=== PATIENT | female | born 1955 | race Caucasian/White ===

== ENCOUNTER 2017-06-29 06:58 | Inpatient (IN) | payer OTHER, SELFPAY ==
--- NOTE | 2017-06-29 | CYSPIN_PTH ---
PATIENT: PRIYA LORENZO LOC: MS2 U#:[id number] AGE/SX: 61/F ROOM: [facility] [place] RE06/29/[address]: Dr. Sharla Ansari MD : [id number] BED: 1 DIS: 07/05/2017 SPEC #: [id number] RECD: 06/30/17 11:55 STATUS: VINCENT HALI #: [id number] BHUMIKA: 06/29/17 00:[address]: Caden Keith DEPT: CYTOLOGY RECD BY: Scott Santiago ENTERED: 06/30/17 11:56 SP TYPE: CYSPIN FL OTHR DR: Dr. Ronen Ferraro MD Tissues: Cerebrospinal Fluid Procedures: Pap Stain (control) Special Stain Group II Cytospin Fluid HEADER OPERATION: Fluoroscopic-guided lumbar puncture PRE-OP DIAGNOSIS: Headaches and neck stiffness TISSUE SUBMITTED: Cerebrospinal fluid for cytology DIAGNOSIS CYTOLOGY Cerebrospinal fluid for cytology (cytospin): Acellular specimen. SJ:lucio 07/01/17 CYTOLOGY STUDY Slides are reviewed. CYTOLOGY GROSS Received is 1 ml of clear fluid labeled with the patient's name and and designated per the requisition as CSF. Submitted for cytology preparation. / 06/30/17 TC:4 CPT: 85093
[2017-06-29 07:00] VITALS: BP 136/90; PULSE 79; RESP 16; TEMP 36.2; O2SAT 95; BMI 35.2
--- NOTE | 2017-06-29 07:35 | CT_ITS ---
STUDY: CTA NECK WITH CONTRAST REASON FOR EXAM: Female, 61 years old. Headaches. Dizziness. RADIATION DOSAGE (If Supplied By Facility): CTDIvol = ( 16.70 ) mGy, DLP = ( 530.66 ) mGycm TECHNIQUE: CT angiography with multi-detector data acquisition was performed from the aortic arch to the skull base following intravenous administration of 100 ml of Isovue 370 contrast. MIP images were reconstructed from the axial data set. Post-processing of the angiographic images was performed, with multiplanar reformation and 3D reconstruction. Individualized dose optimization techniques were used for this CT. COMPARISON: None. FINDINGS: AORTIC ARCH: There is atherosclerotic calcific plaque formation of the aortic arch and great vessels arising from the aortic arch, without a hemodynamically significant stenosis. There is a normal origin of the brachiocephalic, left common carotid, and left subclavian arteries. RIGHT CAROTID ARTERIES: Normal right common carotid artery (CCA). Normal right common carotid bulb. There is mild atherosclerotic plaque formation of the origin of the right internal carotid artery with less than 50% cross sectional diameter stenosis. Normal visualized cervical portion of the right internal carotid artery. Normal origin of the right external carotid artery (ECA). LEFT CAROTID ARTERIES: Normal left common carotid artery (CCA). Normal left common carotid bulb. Normal origin of the left internal carotid (ICA) artery without a hemodynamically significant stenosis. Normal visualized cervical portion of the left internal carotid artery. Normal origin of the left external carotid artery (ECA). VERTEBRAL ARTERIES: There is enhancement within the bilateral vertebral arteries with a small left vertebral artery, and a dominant right vertebral artery. CT/CTA Neck W/WO Contrast IMPRESSION: Mild plaque formation at the origin of the right internal carotid artery. Electronically Signed: Jose Gatica MD at 9:46 EDT Tel [phone], Service support ,
--- NOTE | 2017-06-29 07:35 | CT_ITS ---
STUDY: CTA OF THE BRAIN REASON FOR EXAM: Female, 61 years old. Headaches. Dizziness. RADIATION DOSAGE (If Supplied By Facility): CTDIvol = ( 44.99 ) mGy, DLP = ( 734.24 ) mGycm TECHNIQUE: CT angiography was performed with a multi-detector CT scanner. Data acquisition was obtained from the skull base through the vertex following intravenous administration of 100 ml of Isovue-370. MIP images were reconstructed from the axial data set. Post-processing of the angiographic images was performed, with multiplanar reformation and 3D reconstruction. Individualized dose optimization techniques were used for this CT. COMPARISON: None. FINDINGS: Normal bilateral petrous carotid arteries. There is calcified plaque formation of the right cavernous carotid artery, without a cross-sectional luminal stenosis. There is calcified plaque formation of the left cavernous carotid artery, without a cross-sectional luminal stenosis. Normal right A1 segments of the anterior cerebral artery. Normal left A1 segments of the anterior cerebral artery. Normal intact anterior communicating artery (ACOM). Normal bilateral A2 segments of the anterior cerebral arteries. Normal right M1 and M2 segments of the middle cerebral arteries, with a normal M1 bifurcation. Normal left M1 and M2 segments of the middle cerebral arteries, with a normal M1 bifurcation. Normal right posterior communicating artery (PCOM). There is a persistent origin of the left posterior cerebral artery with absence of the posterior communicating artery (PCOM). Normal bilateral vertebral arteries. Normal basilar artery with a normal basilar bifurcation. The visualized bilateral superior cerebellar (SCA) arteries are normal. Normal bilateral P1, P2 and visualized P3 segments of the posterior cerebral arteries. There is no demonstrated aneurysm of the [place] of [place]. Atherosclerotic calcification of the cavernous portions of the internal carotid arteries. Punctate calcifications in the bilateral basal ganglia. CT/CTA Head W/WO Contrast IMPRESSION: Normal [place] of [place] without a demonstrated aneurysm or hemodynamically significant stenosis. Electronically Signed: Jose Gatica MD at 9:52 EDT Tel [phone], Service support ,
--- NOTE | 2017-06-29 07:40 | ED.DCSUM_ITS ---
- ER Visit Summary Date of Service: 06/29/17 Chief Complaint: Headache History of Present Illness: The patient is a 61 F presenting with headache. Patient states this started on Tuesday. Headache was gradual in onset. On Tuesday she went to [facility]. She was told that she had a sinus infection and was put on prednisone and Ceftin. She states she has not improved. She complains of diffuse headache. Denies nausea or vomiting. She complains of sore throat. No fever or chills. She complains of tightness in neck. Denies other complaints. Physical Examination: Vitals are stable. Patient is afebrile. Alert no acute distress. HEENT exam is unremarkable. Neck is supple. Bilateral paraspinal cervical muscle tenderness Lungs are clear and equal bilaterally. Heart is regular rate and rhythm. Abdomen is soft nontender nondistended. Extremities are unremarkable. Skin is warm and dry. No focal neurologic deficit. Remainder of exam is unremarkable. Emergency Department Course and Treatment: Patient given IV fluids, Compazine, Benadryl with improvement. CBC is shows wbc 11.4. Chemistry shows potassium 3.3, BUN 23. Coags are normal. CTA head and neck show mild plaque right internal carotid. Patient was consented for lumbar puncture. Attempts at LP were unsuccessful secondary to body habitus. LP will be performed under fluoro and show normal glucose, elevated protein, remainder pending. She was given Toradol for continued headache. Discussed with the hospitalist for admission. Disposition: Admission Impression: Headache, viral meningitis This note was generated with Lulu dictation software. It may contain incorrect words, spelling, and punctuation that were not noted in review of the chart prior to signing ED Disposition - Plan for ED Patient: Disposition: Acute Care Hospital [facility] Chief Complaint: Headache
[2017-06-29] MEDS: DiphenhydrAMINE 50 MG/ML Syringe 25 MG IV (07:41)
[2017-06-29] MEDS: proCHLORPERazine 10 MG/2 ML Vial IV (07:41)
[2017-06-29] MEDS: 0.9% Normal Saline 1,000 ML 1000 ML IV (07:41)
[2017-06-29 08:22] LABS: Absolute Lymphocyte Count 1.35 X10^3/ul (0.83-4.51); Absolute Neutrophil Count 9.1 X10^3/uL (2.0-7.7); Basophil# 0.02 X10^3/uL; Basophil% 0.2 % (0-1); Eosinophil# 0.07 X10^3/uL; Eosinophils% 0.6 % (0-5); Hematocrit 43.8 % (37-47); Hemoglobin 14.8 g/dl (12.0-15.0); Lymphocyte # 1.35 X10^3/ul (4.0); Lymphocyte % 11.8 % (19-41); Mean Corp Hgb Conc 33.8 g/gl (32-36); Mean Corpuscular Hgb 32.1 pg (27.0-32.0); Mean Platelet Vol. 9.8 fl (6.2-12.0); Monocyte# 0.86 X10^3/uL; Monocyte% 7.5 % (0-10); Neutrophil # 9.08 X10^3/uL (2.7-7.7); Neutrophil % 79.5 % (47-70); Platelet Count 203 K/mm3 (150-450); RBC Distribution Width CV 14.8 % (11.6-14.6); RBC Distribution Width SD 49.8 fl (35.1-43.9); Red Blood Count 4.61 M/mm3 (4.2-5.4); White Blood Count 11.4 K/mm3 (4.4-11.0)
[2017-06-29 08:23] LABS: POSITIVE COUNT NO; POSITIVE DIFFERENTIAL NO; POSITIVE MORPHOLOGY NO
[2017-06-29 08:30] LABS: Anion Gap 8 (5-15); BUN 23 mg/dL (7-18); BUN/Creat Ratio 26.9 RATIO (10-20); Calcium,Total 8.7 mg/dL (8.5-10.1); Chloride 106 mmol/L (98-107); Creatinine, Serum 0.86 mg/dL (0.55-1.02); EST Glomerular Filtration Rate 72 mL/min (>60); Est Glom Filt Rate - Afr Amer 87 mL/min (>60); Estimated Creatinine Clearance 49.97 ml/min; Glucose 101 mg/dL (74-106); Potassium 3.3 mmol/L (3.5-5.1); Sodium Level 140 mmol/L (136-145)
[2017-06-29 10:59] VITALS: BP 137/76; PULSE 92; RESP 14; O2SAT 95
[2017-06-29 11:08] LABS: Partial Thromboplast Time 24.3 Seconds (24.1-36.2)
[2017-06-29 12:00] VITALS: RESP 16
[2017-06-29] MEDS: Ketorolac 30 MG/ML Syringe IV (13:55)
[2017-06-29 14:00] VITALS: BP 130/79; PULSE 83; RESP 16; O2SAT 99
--- NOTE | 2017-06-29 14:35 | RAD_ITS ---
PROCEDURE: Fluoroscopic guided Lumbar Puncture. DATE: June 29, 2017. CLINICAL INDICATION: Headaches and neck stiffness and possible meningitis. PHYSICIAN: Jose Gatica M.D. MEDICATIONS: 1% lidocaine administered subcutaneously for local anesthesia. ACCESS SITE: Lower posterior back. NEEDLE: 22-gauge spinal needle. SPECIMEN: Approximately 12 mL clear]CSF fluid. FLUOROSCOPY TIME (if supplied): (0:43) minutes/seconds COMPLICATIONS: None immediate. The risks, benefits, and alternatives to the procedure were explained to the patient. The specific risks of bleeding, infection, and neurovascular injury were detailed and accepted. Witnessed informed consent was obtained. The patient was placed on the fluoroscopic table in the prone position. The level for needle entry was determined and marked. The overlying skin was cleaned and prepped in the usual sterile fashion. 2% lidocaine was administered subcutaneously for local anesthesia. Under fluoroscopic guidance a 22-gauge spinal needle was advanced. The thecal sac was entered at the L3- L4 vertebral level. The inner stylet was removed. There was spontaneous flow of clear CSF fluid. The patient was placed in a reversed Trendelenburg position. Approximately 12 mL of cerebrospinal fluid was collected using gravity. The specimen was collected and submitted to the laboratory for further evaluation. The needle was withdrawn,. Hemostasis was achieved and a sterile dressing placed. The patient tolerated the procedure well without any immediate complications. The patient was placed supine with head elevated and returned to the floor in stable condition. RAD/Fluoro Guided Lumbar Puncture IMPRESSION: Successful fluoroscopic-guided lumbar puncture. Electronically Signed: Jose Gatica MD at 15:21 EDT Tel [phone], Service support ,
[2017-06-29 15:10] LABS: Cytology, Body Fluid / CSF SEE PATHOLOGY REPORT
[2017-06-29 15:22] LABS: Glucose Spinal Fluid 71 mg/dL (40-75)
[2017-06-29 15:46] VITALS: BP 140/73; PULSE 82; RESP 16; O2SAT 95
[2017-06-29 15:56] LABS: Body Fluid Mononuclear WBC # 0.001 10^3/uL; Total Cell Count CSF 0.001 10^3/uL (0.000-0.000); White Count, CSF 0.001 10^3/uL (0.000-0.000)
[2017-06-29 16:05] LABS: Appearance CSF (character) CLEAR (Clear); Auto B Fluid Analyzer BKGD Ct COUNTS W/IN LIMITS (W/IN LIMITS); CSF Color COLORLESS (Colorless); Tested Tube # 3
[2017-06-29 16:06] LABS: RBC Count, Spinal Fluid 0 /mm-3 (None seen)
[2017-06-29 16:07] LABS: Body Fluid QC Type(s) BF4Q
--- NOTE | 2017-06-29 16:46 | PCM.HP.STD ---
Problem List (1) Viral encephalitis Status: Acute (2) HTN (hypertension) Status: Chronic History of Present Illness Date of Admission: 06/29/17 Chief Complaint: Headache, neck pain and fever The patient is a 61 year old F who is in her normal state of health up until about a week ago. One week ago patient started developing is diffuse headache as well as stiff neck and has intermittently had low-grade fevers up to 100.7 Fahrenheit. Patient which is not getting better and presented to the emergency room. Patient tried to get a lumbar puncture at bedside but were unsuccessful and the patient underwent to fluoroscopy and underwent a lumbar puncture. Results of the lumbar puncture showed white blood cells and protein count of 54. Glucose of 71. Patient is still having symptoms and discomfort in so patient is being admitted for treatment of viral encephalitis and pain control. Patient states that prior to this she denied any recent illness but did come back from [place] but did not do any hiking and did not contract any illnesses while she was there. [] Past Medical History Past Medical History (Chronic Problems): Chronic Problems HTN (hypertension) (Chronic) Allergies amoxicillin [From Augmentin] Allergy (Verified 06/29/17 06:59) Upset Stomach clavulanic acid [From Augmentin] Allergy (Verified 06/29/17 06:59) Upset Stomach Home Medications: Ambulatory Orders Medication Instructions Recorded Allopurinol [Allopurinol] 1 tab PO PRN PRN 06/29/17 Aspirin 81 mg PO DAILY 06/29/17 Metoprolol(XL)Succ [Toprol Xl 1 tab PO DAILY 06/29/17 (Beta Nola)] Triamterene 37.5MG/Hctz 25MG 1 tab PO DAILY 06/29/17 [Dyazide (G)] Surgical History: total knee arthroplasty Psychiatric History: No pertinent psych hx Lives: Spouse/ Significant Other Smoking Status: Never smoker Tobacco Use: Non-smoker Alcohol: Rare Drugs: None - *Family History Maternal History Items: - - No neurologic disorders Review of Systems Constitutional: Denies: Chills, Fever, Weight Change Eyes: Reports: - - Dry eyes. Denies: Blurred vision, Double vision HEENT: Denies: Head Aches, Sinus Congestion, Sinus Drainage Cardiovascular: Denies: Chest Pain, Palpitations Respiratory: Reports: Shortness of breath at rest. Denies: Cough Gastrointestinal: Denies: Abdominal Pain, Constipation, Diarrhea, Nausea Genitourinary: Denies: Dysuria Musculoskeletal: Reports: Neck Pain. Denies: Joint Pain, Joint Tenderness Skin: Denies: Rash, Wounds Neurological: Denies: Numbness, Tingling, Focal weakness Psychiatric: Denies: Anxiety, Depression, Homicidal Ideations, Suicidal Ideations Hematologic/ Lymphatic: Denies: Easy Bruising, Easy Bleeding, Hx of blood clot VTE Information - Inpt Only VTE Present on Admission: No VTE Pharm Prophylaxis ordered?: Yes Patient Problems: Active and Suspected Problems Viral encephalitis (Acute) - Physical Exam General: Alert, Cooperative, No apparent distress, Well developed, Well nourished HEENT: Atraumatic, PERRLA, EOMI, Normocephalic Oral: Moist Mucosa, No Gingival or Mucosal Lesions/ Ulcerations Neck: No Nodes, Thyroid Normal Size and Texture Lungs: Clear to auscultation, Normal air movement, No rhonchi, No wheeze Cardiovascular: Regular rate, Regular Rhythm, Normal S1, Normal S2, No murmurs Abdomen: Bowel Sounds Present, Soft, Non Tender, Non-Distended, No Hepato-splenomegaly Extremities: No edema, No Calf Tenderness Skin: No rashes Musculoskeletal: No Tenderness to Palpation of Joints or Extremities, No Muscle Wasting Neurological: Neuro grossly intact, Motor Exam 5/5 strength throughout, - - Negative Kernig and Brudzinski sign Psych/Mental Status: Normal Affect, Appropriate Vital Signs Temp Pulse Resp BP Pulse Ox 36.2 C L 82 16 140/73 H 95 06/29/17 07:00 06/29/17 15:46 06/29/17 15:46 06/29/17 15:46 06/29/17 15:46 Oxygen Delivery Method Room Air Weight: 81.647 kg Body Mass Index (BMI) 35.2 Microbiology Past 72 Hours 06/29/17 14:41 Gram Stain - Preliminary Csf, Spinal Fluid 06/29/17 14:41 Streptococcus pneumoniae Antigen (M - Final Csf, Spinal Fluid Laboratory Tests Past 24 Hrs 06/29/17 06/29/17 06/29/17 07:20 07:20 07:20 WBC 11.4 H RBC 4.61 Hgb 14.8 Hct 43.8 MCV 95.0 MCH 32.1 H MCHC 33.8 RDW 14.8 H RDW Differential 49.8 H Plt Count 203 MPV 9.8 Immature Gran % (Auto) 0.400 Neut % (Auto) 79.5 H Lymph % (Auto) 11.8 L Mcduffie % (Auto) 7.5 Eos % (Auto) 0.6 Baso % (Auto) 0.2 Absolute Neuts (auto) 9.1 H Absolute Lymphs (auto) 1.35 Total Counted Not Reportable PT 13.0 INR 1.0 APTT 24.3 Sodium 140 Potassium 3.3 L Chloride 106 Carbon Dioxide 26.0 Anion Gap 8 BUN 23 H Creatinine 0.86 Estim Creat Clear Calc 49.97 Est GFR (MDRD) Af Amer 87 Est GFR (MDRD) Non-Af 72 BUN/Creatinine Ratio 26.9 H Glucose 101 Calcium 8.7 Fld Polynuclear WBCs # Fld Polynuclear WBCs % Fluid Mononuclear WBCs Fld Mononuclear WBCs % CSF Appearance CSF Color CSF WBC CSF RBC CSF Cell Count Tube # CSF Total Cell Counted CSF Comment CSF Glucose CSF Total Protein Miscellaneous Cytology 06/29/17 06/29/17 06/29/17 14:41 14:41 14:41 WBC RBC Hgb Hct MCV MCH MCHC RDW RDW Differential Plt Count MPV Immature Gran % (Auto) Neut % (Auto) Lymph % (Auto) [place]duff[place] % (Auto) Eos % (Auto) Baso % (Auto) Absolute Neuts (auto) Absolute Lymphs (auto) Total Counted PT INR APTT Sodium Potassium Chloride Carbon Dioxide Anion Gap BUN Creatinine Estim Creat Clear Calc Est GFR (MDRD) Af Amer Est GFR (MDRD) Non-Af BUN/Creatinine Ratio Glucose Calcium Fld Polynuclear WBCs # 0.000 Fld Polynuclear WBCs % 0.0 Fluid Mononuclear WBCs 0.001 Fld Mononuclear WBCs % 100.0 CSF Appearance CLEAR CSF Color COLORLESS CSF WBC 0.001 H CSF RBC 0 CSF Cell Count Tube # 3 CSF Total Cell Counted 0.001 H CSF Comment May follow CSF Glucose 71 CSF Total Protein 54.0 H Miscellaneous Cytology 06/29/17 14:41 WBC RBC Hgb Hct MCV MCH MCHC RDW RDW Differential Plt Count MPV Immature Gran % (Auto) Neut % (Auto) Lymph % (Auto) [place]ff[place] % (Auto) Eos % (Auto) Baso % (Auto) Absolute Neuts (auto) Absolute Lymphs (auto) Total Counted PT INR APTT Sodium Potassium Chloride Carbon Dioxide Anion Gap BUN Creatinine Estim Creat Clear Calc Est GFR (MDRD) Af Amer Est GFR (MDRD) Non-Af BUN/Creatinine Ratio Glucose Calcium Fld Polynuclear WBCs # Fld Polynuclear WBCs % Fluid Mononuclear WBCs Fld Mononuclear WBCs % CSF Appearance CSF Color CSF WBC CSF RBC CSF Cell Count Tube # CSF Total Cell Counted CSF Comment CSF Glucose CSF Total Protein Miscellaneous Cytology Pending Clinical Impression(s) from Imaging Studies Head CTA 06/29/17 07:35 IMPRESSION: Normal [place] without a demonstrated aneurysm or hemodynamically significant stenosis. Electronically Signed: Jose Gatica MD at 9:52 EDT Tel [phone], Service support , Neck CTA 06/29/17 07:35 IMPRESSION: Mild plaque formation at the origin of the right internal carotid artery. Electronically Signed: Jose Gatica MD at 9:46 EDT Tel [phone], Service support , Lumbar Puncture Fluoroscopy 06/29/17 14:35 IMPRESSION: Successful fluoroscopic-guided lumbar puncture. Electronically Signed: Jose Gatica MD at 15:21 EDT Tel [phone], Service support , Assessment/Plan Active and Suspected Problems Viral encephalitis (Acute) 1. Viral encephalitis Patient will be started empirically on acyclovir at 10 mg/kg Studies for enterovirus, HSV and VZV are pending. Patient thus far tolerated the spinal tap well. We will follow the patient in regards to any kind of post spinal headaches. 2. Headache Likely secondary to above. Patient to take ibuprofen and Tylenol 3. Hypertension: Stable continue with her home meds 4. DVT prophylaxis with low molecular weight heparin. Code Visit Inpatient E&M: 29393 Init Hosp L3
--- NOTE | 2017-06-29 16:49 | NURSING ---
Kevin VIRAL ENCEPHALITIS [facility]
--- NOTE | 2017-06-29 16:53 | HP.PCM_ITS ---
Problem List (1) Viral encephalitis Status: Acute (2) HTN (hypertension) Status: Chronic History of Present Illness Date of Admission: 06/29/17 Chief Complaint: Headache, neck pain and fever The patient is a 61 year old F who is in her normal state of health up until about a week ago. One week ago patient started developing is diffuse headache as well as stiff neck and has intermittently had low-grade fevers up to 100.7 Fahrenheit. Patient which is not getting better and presented to the emergency room. Patient tried to get a lumbar puncture at bedside but were unsuccessful and the patient underwent to fluoroscopy and underwent a lumbar puncture. Results of the lumbar puncture showed white blood cells and protein count of 54. Glucose of 71. Patient is still having symptoms and discomfort in so patient is being admitted for treatment of viral encephalitis and pain control. Patient states that prior to this she denied any recent illness but did come back from [place] but did not do any hiking and did not contract any illnesses while she was there. [] Past Medical History Past Medical History (Chronic Problems): Chronic Problems HTN (hypertension) (Chronic) Allergies amoxicillin [From Augmentin] Allergy (Verified 06/29/17 06:59) Upset Stomach clavulanic acid [From Augmentin] Allergy (Verified 06/29/17 06:59) Upset Stomach Home Medications: Ambulatory Orders Medication Instructions Recorded Allopurinol [Allopurinol] 1 tab PO PRN PRN 06/29/17 Aspirin 81 mg PO DAILY 06/29/17 Metoprolol(XL)Succ [Toprol Xl 1 tab PO DAILY 06/29/17 (Beta Nola)] Triamterene 37.5MG/Hctz 25MG 1 tab PO DAILY 06/29/17 [Dyazide (G)] Surgical History: total knee arthroplasty Psychiatric History: No pertinent psych hx Lives: Spouse/ Significant Other Smoking Status: Never smoker Tobacco Use: Non-smoker Alcohol: Rare Drugs: None - *Family History Maternal History Items: - - No neurologic disorders Review of Systems Constitutional: Denies: Chills, Fever, Weight Change Eyes: Reports: - - Dry eyes. Denies: Blurred vision, Double vision HEENT: Denies: Head Aches, Sinus Congestion, Sinus Drainage Cardiovascular: Denies: Chest Pain, Palpitations Respiratory: Reports: Shortness of breath at rest. Denies: Cough Gastrointestinal: Denies: Abdominal Pain, Constipation, Diarrhea, Nausea Genitourinary: Denies: Dysuria Musculoskeletal: Reports: Neck Pain. Denies: Joint Pain, Joint Tenderness Skin: Denies: Rash, Wounds Neurological: Denies: Numbness, Tingling, Focal weakness Psychiatric: Denies: Anxiety, Depression, Homicidal Ideations, Suicidal Ideations Hematologic/ Lymphatic: Denies: Easy Bruising, Easy Bleeding, Hx of blood clot VTE Information - Inpt Only VTE Present on Admission: No VTE Pharm Prophylaxis ordered?: Yes Patient Problems: Active and Suspected Problems Viral encephalitis (Acute) - Physical Exam General: Alert, Cooperative, No apparent distress, Well developed, Well nourished HEENT: Atraumatic, PERRLA, EOMI, Normocephalic Oral: Moist Mucosa, No Gingival or Mucosal Lesions/ Ulcerations Neck: No Nodes, Thyroid Normal Size and Texture Lungs: Clear to auscultation, Normal air movement, No rhonchi, No wheeze Cardiovascular: Regular rate, Regular Rhythm, Normal S1, Normal S2, No murmurs Abdomen: Bowel Sounds Present, Soft, Non Tender, Non-Distended, No Hepato- splenomegaly Extremities: No edema, No Calf Tenderness Skin: No rashes Musculoskeletal: No Tenderness to Palpation of Joints or Extremities, No Muscle Wasting Neurological: Neuro grossly intact, Motor Exam 5/5 strength throughout, - - Negative Kernig and Brudzinski sign Psych/Mental Status: Normal Affect, Appropriate Vital Signs Temp Pulse Resp BP Pulse Ox 36.2 C L 82 16 140/73 H 95 06/29/17 07:00 06/29/17 15:46 06/29/17 15:46 06/29/17 15:46 06/29/17 15:46 Oxygen Delivery Method Room Air Weight: 81.647 kg Body Mass Index (BMI) 35.2 Microbiology Past 72 Hours 06/29/17 14:41 Gram Stain - Preliminary Csf, Spinal Fluid 06/29/17 14:41 Streptococcus pneumoniae Antigen (M - Final Csf, Spinal Fluid Laboratory Tests Past 24 Hrs 06/29/17 06/29/17 06/29/17 07:20 07:20 07:20 WBC 11.4 H RBC 4.61 Hgb 14.8 Hct 43.8 MCV 95.0 MCH 32.1 H MCHC 33.8 RDW 14.8 H RDW Differential 49.8 H Plt Count 203 MPV 9.8 Immature Gran % (Auto) 0.400 Neut % (Auto) 79.5 H Lymph % (Auto) 11.8 L [place] % (Auto) 7.5 Eos % (Auto) 0.6 Baso % (Auto) 0.2 Absolute Neuts (auto) 9.1 H Absolute Lymphs (auto) 1.35 Total Counted Not Reportable PT 13.0 INR 1.0 APTT 24.3 Sodium 140 Potassium 3.3 L Chloride 106 Carbon Dioxide 26.0 Anion Gap 8 BUN 23 H Creatinine 0.86 Estim Creat Clear Calc 49.97 Est GFR (MDRD) Af Amer 87 Est GFR (MDRD) Non-Af 72 BUN/Creatinine Ratio 26.9 H Glucose 101 Calcium 8.7 Fld Polynuclear WBCs # Fld Polynuclear WBCs % Fluid Mononuclear WBCs Fld Mononuclear WBCs % CSF Appearance CSF Color CSF WBC CSF RBC CSF Cell Count Tube # CSF Total Cell Counted CSF Comment CSF Glucose CSF Total Protein Miscellaneous Cytology 06/29/17 06/29/17 06/29/17 14:41 14:41 14:41 WBC RBC Hgb Hct MCV MCH MCHC RDW RDW Differential Plt Count MPV Immature Gran % (Auto) Neut % (Auto) Lymph % (Auto) [place] % (Auto) Eos % (Auto) Baso % (Auto) Absolute Neuts (auto) Absolute Lymphs (auto) Total Counted PT INR APTT Sodium Potassium Chloride Carbon Dioxide Anion Gap BUN Creatinine Estim Creat Clear Calc Est GFR (MDRD) Af Amer Est GFR (MDRD) Non-Af BUN/Creatinine Ratio Glucose Calcium Fld Polynuclear WBCs # 0.000 Fld Polynuclear WBCs % 0.0 Fluid Mononuclear WBCs 0.001 Fld Mononuclear WBCs % 100.0 CSF Appearance CLEAR CSF Color COLORLESS CSF WBC 0.001 H CSF RBC 0 CSF Cell Count Tube # 3 CSF Total Cell Counted 0.001 H CSF Comment May follow CSF Glucose 71 CSF Total Protein 54.0 H Miscellaneous Cytology 06/29/17 14:41 WBC RBC Hgb Hct MCV MCH MCHC RDW RDW Differential Plt Count MPV Immature Gran % (Auto) Neut % (Auto) Lymph % (Auto) [place] % (Auto) Eos % (Auto) Baso % (Auto) Absolute Neuts (auto) Absolute Lymphs (auto) Total Counted PT INR APTT Sodium Potassium Chloride Carbon Dioxide Anion Gap BUN Creatinine Estim Creat Clear Calc Est GFR (MDRD) Af Amer Est GFR (MDRD) Non-Af BUN/Creatinine Ratio Glucose Calcium Fld Polynuclear WBCs # Fld Polynuclear WBCs % Fluid Mononuclear WBCs Fld Mononuclear WBCs % CSF Appearance CSF Color CSF WBC CSF RBC CSF Cell Count Tube # CSF Total Cell Counted CSF Comment CSF Glucose CSF Total Protein Miscellaneous Cytology Pending Clinical Impression(s) from Imaging Studies Head CTA 06/29/17 07:35 IMPRESSION: Normal [place] without a demonstrated aneurysm or hemodynamically significant stenosis. Electronically Signed: Jose Gatica MD at 9:52 EDT Tel [phone], Service support , Neck CTA 06/29/17 07:35 IMPRESSION: Mild plaque formation at the origin of the right internal carotid artery. Electronically Signed: Jose Gatica MD at 9:46 EDT Tel [phone], Service support , Lumbar Puncture Fluoroscopy 06/29/17 14:35 IMPRESSION: Successful fluoroscopic-guided lumbar puncture. Electronically Signed: Jose Gatica MD at 15:21 EDT Tel [phone], Service support , Assessment/Plan Active and Suspected Problems Viral encephalitis (Acute) 1. Viral encephalitis * Patient will be started empirically on acyclovir at 10 mg/kg * Studies for enterovirus, HSV and VZV are pending. * Patient thus far tolerated the spinal tap well. We will follow the patient in regards to any kind of post spinal headaches. 2. Headache * Likely secondary to above. * Patient to take ibuprofen and Tylenol 3. Hypertension: Stable continue with her home meds 4. DVT prophylaxis with low molecular weight heparin. Code Visit Inpatient E&M: 22619 Init Hosp L3
[2017-06-29 18:07] VITALS: BMI 37.6; BMI 37.7
[2017-06-29] MEDS: Acyclovir 800 MG in Dextrose 5% 250 ML 266 MG IV (21:23)
[2017-06-29 21:40] VITALS: BP 137/69; PULSE 89; RESP 16; TEMP 36.5; O2SAT 94
[2017-06-29] MEDS: Ketorolac 15 MG/ML Vial IV (21:50)
[2017-06-30] MEDS: Acetaminophen 500 MG Tablet 1000 MG PO ×3 (02:57→21:56)
[2017-06-30 03:19] VITALS: BP 151/80; PULSE 89; RESP 18; TEMP 36.8; O2SAT 95
[2017-06-30] MEDS: Ketorolac 15 MG/ML Vial IV ×3 (03:58→16:11)
[2017-06-30] MEDS: Acyclovir 800 MG in Dextrose 5% 250 ML 266 MG IV (05:49)
[2017-06-30 06:01] LABS: Absolute Lymphocyte Count 1.46 X10^3/ul (0.83-4.51); Absolute Neutrophil Count 6.3 X10^3/uL (2.0-7.7); Basophil# 0.02 X10^3/uL; Basophil% 0.2 % (0-1); Eosinophil# 0.08 X10^3/uL; Eosinophils% 0.9 % (0-5); Hematocrit 38.5 % (37-47); Hemoglobin 12.7 g/dl (12.0-15.0); Lymphocyte # 1.46 X10^3/ul (4.0); Lymphocyte % 16.6 % (19-41); Mean Corpuscular Hgb 31.7 pg (27.0-32.0); Mean Platelet Vol. 9.3 fl (6.2-12.0); Monocyte# 0.95 X10^3/uL; Monocyte% 10.8 % (0-10); Neutrophil # 6.28 X10^3/uL (2.7-7.7); Neutrophil % 71.3 % (47-70); Platelet Count 154 K/mm3 (150-450); RBC Distribution Width CV 14.9 % (11.6-14.6); RBC Distribution Width SD 52.2 fl (35.1-43.9); Red Blood Count 4.01 M/mm3 (4.2-5.4); White Blood Count 8.8 K/mm3 (4.4-11.0)
[2017-06-30 06:13] LABS: POSITIVE COUNT NO; POSITIVE DIFFERENTIAL NO; POSITIVE MORPHOLOGY NO
[2017-06-30 06:29] LABS: Anion Gap 8 (5-15); BUN 26 mg/dL (7-18); Calcium,Total 8.4 mg/dL (8.5-10.1); Chloride 109 mmol/L (98-107); Creatinine, Serum 1.13 mg/dL (0.55-1.02); EST Glomerular Filtration Rate 52 mL/min (>60); Est Glom Filt Rate - Afr Amer 63 mL/min (>60); Estimated Creatinine Clearance 38.03 ml/min; Glucose 92 mg/dL (74-106); Potassium 3.4 mmol/L (3.5-5.1); Sodium Level 144 mmol/L (136-145)
--- NOTE | 2017-06-30 09:51 | PCM.PN.HOSP ---
Patient Problems: Active and Suspected Problems Viral encephalitis (Acute) Subjective: Today that she did have some resolution of her headache but has come back this morning. Stated that the Toradol helped her. Still with neck pain primarily on her left. Vitals/I&O's: Vital Signs Temp Pulse Resp BP Pulse Ox 36.8 C 89 18 151/80 H 95 06/30/17 03:19 06/30/17 03:19 06/30/17 03:19 06/30/17 03:19 06/30/17 03:19 Oxygen Delivery Method Room Air Weight: 87.5 kg Body Mass Index (BMI) 37.6 Intake and Output for Last 24 Hours 06/28/17 06/29/17 06/30/17 23:59 23:59 23:59 Intake Total 740 / 740 Output Total 300 / 300 Balance 440 / 440 General: Alert, No apparent distress HEENT: Atraumatic, Normocephalic Neck: No Nodes, Thyroid Normal Size and Texture Lungs: Clear to auscultation, Normal air movement Cardiovascular: Regular rate, Regular Rhythm, Normal S1, Normal S2, No murmurs Abdomen: Bowel Sounds Present, Soft, Non Tender, Non-Distended Extremities: No edema, No Calf Tenderness Musculoskeletal: Tenderness - Palpation of the left trapezius muscle. Psych/Mental Status: Flat Affect Laboratory Results 06/30/17 05:35: WBC 8.8, RBC 4.01 L, Hgb 12.7, Hct 38.5, MCV 96.0, MCH 31.7, MCHC 33.0, RDW 14.9 H, RDW Differential 52.2 H, Plt Count 154, MPV 9.3, Immature Gran % (Auto) 0.200, Neut % (Auto) 71.3 H, Lymph % (Auto) 16.6 L, [place] % (Auto) 10.8 H, Eos % (Auto) 0.9, Baso % (Auto) 0.2, Absolute Neuts (auto) 6.3, Absolute Lymphs (auto) 1.46, Total Counted Not Reportable 06/30/17 05:35: Sodium 144, Potassium 3.4 L, Chloride 109 H, Carbon Dioxide 27.0, Anion Gap 8, BUN 26 H, Creatinine 1.13 H, Estim Creat Clear Calc 38.03, Est GFR (MDRD) Af Amer 63, Est GFR (MDRD) Non-Af 52 L, BUN/Creatinine Ratio 23.0 H, Glucose 92, Calcium 8.4 L Current Medications Acetaminophen (Tylenol) 1,000 mg PO Q8 PRN PRN Reason: .HEADACHE/PAIN Last Admin: 06/30/17 02:57 Dose: 1,000 mg Allopurinol (Zyloprim) 300 mg PO PRN PRN PRN Reason: GOUT Aspirin (Aspirin, Baby) 81 mg PO DAILYCM [facility] Enoxaparin Sodium (Lovenox) 40 mg SC DAILY@1000 FERNIE Acyclovir Sodium 450 mg/ (Dextrose) 259 mls @ 266 mls/hr IV Q12 [facility] Ketorolac Tromethamine (Toradol) 15 mg IV Q6 PRN PRN Reason: PAIN Stop: 07/04/17 17:50 Last Admin: 06/30/17 03:58 Dose: 15 mg Magnesium Hydroxide (Milk Of Magnesia) 30 ml PO DAILY PRN PRN PRN Reason: Constipation Metoprolol Succinate (Toprol Xl (Beta Nola)) 100 mg PO DAILY [facility] Sodium Chloride () 5 - 30 ml IV UD PRN PRN Reason: SALINE FLUSH Triamterene/HCTZ (Dyazide (G)) 1 cap PO DAILY [facility] Medical Necessity - Tobacco Use Smoking Status: Never smoker Tobacco Use: Non-smoker Assessment/Plan Active and Suspected Problems Viral encephalitis (Acute) 1. Viral encephalitis Patient will be started empirically on acyclovir at 10 mg/kg Studies for enterovirus, HSV and VZV are pending. Patient thus far tolerated the spinal tap well. We will follow the patient in regards to any kind of post spinal headaches. Running has gone up 1.13 up from 0.86. Discussed with pharmacy and see that the initial dosing of acyclovir should been based on ideal body weight on actual body weight and will be decreased to 450 I will give the patient IV fluids to help flush her kidneys. Follow-up studies of enterovirus, HSV and VZV. 2. Headache Likely secondary to above. Patient to take Toradol and Tylenol There is some muscle strain or spasm of her left trapezius which is apparently contributing to this pain overall. Give her a one-time dose of Valium but also start her on Flexeril. 3. Hypertension: Stable continue with her home meds 4. DVT prophylaxis with low molecular weight heparin. 5. Disposition: On hold given the patient's overall response and how her kidney function plays out. I am not sure the the viral studies will be back prior to the patient being discharged. Hopefully patient could be discharged in next 24-48 hours. Code Visit Inpatient E&M: 38597 Subs Hosp L2
--- NOTE | 2017-06-30 09:55 | PN_ITS ---
Patient Problems: Active and Suspected Problems Viral encephalitis (Acute) Subjective: Today that she did have some resolution of her headache but has come back this morning. Stated that the Toradol helped her. Still with neck pain primarily on her left. Vitals/I&O's: Vital Signs Temp Pulse Resp BP Pulse Ox 36.8 C 89 18 151/80 H 95 06/30/17 03:19 06/30/17 03:19 06/30/17 03:19 06/30/17 03:19 06/30/17 03:19 Oxygen Delivery Method Room Air Weight: 87.5 kg Body Mass Index (BMI) 37.6 Intake and Output for Last 24 Hours 06/28/17 06/29/17 06/30/17 23:59 23:59 23:59 Intake Total 740 / 740 Output Total 300 / 300 Balance 440 / 440 General: Alert, No apparent distress HEENT: Atraumatic, Normocephalic Neck: No Nodes, Thyroid Normal Size and Texture Lungs: Clear to auscultation, Normal air movement Cardiovascular: Regular rate, Regular Rhythm, Normal S1, Normal S2, No murmurs Abdomen: Bowel Sounds Present, Soft, Non Tender, Non-Distended Extremities: No edema, No Calf Tenderness Musculoskeletal: Tenderness - Palpation of the left trapezius muscle. Psych/Mental Status: Flat Affect Laboratory Results 06/30/17 05:35: WBC 8.8, RBC 4.01 L, Hgb 12.7, Hct 38.5, MCV 96.0, MCH 31.7, MCHC 33.0, RDW 14.9 H, RDW Differential 52.2 H, Plt Count 154, MPV 9.3, Immature Gran % (Auto) 0.200, Neut % (Auto) 71.3 H, Lymph % (Auto) 16.6 L, [place] % (Auto) 10.8 H, Eos % (Auto) 0.9, Baso % (Auto) 0.2, Absolute Neuts (auto) 6.3 , Absolute Lymphs (auto) 1.46, Total Counted Not Reportable 06/30/17 05:35: Sodium 144, Potassium 3.4 L, Chloride 109 H, Carbon Dioxide 27.0 , Anion Gap 8, BUN 26 H, Creatinine 1.13 H, Estim Creat Clear Calc 38.03, Est GFR (MDRD) Af Amer 63, Est GFR (MDRD) Non-Af 52 L, BUN/Creatinine Ratio 23.0 H, Glucose 92, Calcium 8.4 L Current Medications Acetaminophen (Tylenol) 1,000 mg PO Q8 PRN PRN Reason: .HEADACHE/PAIN Last Admin: 06/30/17 02:57 Dose: 1,000 mg Allopurinol (Zyloprim) 300 mg PO PRN PRN PRN Reason: GOUT Aspirin (Aspirin, Baby) 81 mg PO DAILYCM [facility] Enoxaparin Sodium (Lovenox) 40 mg SC DAILY@1000 FERNIE Acyclovir Sodium 450 mg/ (Dextrose) 259 mls @ 266 mls/hr IV Q12 [facility] Ketorolac Tromethamine (Toradol) 15 mg IV Q6 PRN PRN Reason: PAIN Stop: 07/04/17 17:50 Last Admin: 06/30/17 03:58 Dose: 15 mg Magnesium Hydroxide (Milk Of Magnesia) 30 ml PO DAILY PRN PRN PRN Reason: Constipation Metoprolol Succinate (Toprol Xl (Beta Nola)) 100 mg PO DAILY [facility] Sodium Chloride () 5 - 30 ml IV UD PRN PRN Reason: SALINE FLUSH Triamterene/HCTZ (Dyazide (G)) 1 cap PO DAILY [facility] Medical Necessity - Tobacco Use Smoking Status: Never smoker Tobacco Use: Non-smoker Assessment/Plan Active and Suspected Problems Viral encephalitis (Acute) 1. Viral encephalitis * Patient will be started empirically on acyclovir at 10 mg/kg * Studies for enterovirus, HSV and VZV are pending. * Patient thus far tolerated the spinal tap well. We will follow the patient in regards to any kind of post spinal headaches. * Running has gone up 1.13 up from 0.86. Discussed with pharmacy and see that the initial dosing of acyclovir should been based on ideal body weight on actual body weight and will be decreased to 450 * I will give the patient IV fluids to help flush her kidneys. * Follow-up studies of enterovirus, HSV and VZV. 2. Headache * Likely secondary to above. * Patient to take Toradol and Tylenol * There is some muscle strain or spasm of her left trapezius which is apparently contributing to this pain overall. Give her a one-time dose of Valium but also start her on Flexeril. 3. Hypertension: Stable continue with her home meds 4. DVT prophylaxis with low molecular weight heparin. 5. Disposition: On hold given the patient's overall response and how her kidney function plays out. I am not sure the the viral studies will be back prior to the patient being discharged. Hopefully patient could be discharged in next 24-48 hours. Code Visit Inpatient E&M: 67957 Subs Hosp L2
[2017-06-30 10:09] VITALS: PULSE 88
[2017-06-30] MEDS: Aspirin 81 MG TAB.CHEW PO (10:09)
[2017-06-30] MEDS: Triamterene 37.5MG/Hctz 25MG Capsule 1 CAP PO (10:09)
[2017-06-30] MEDS: Metoprolol(XL)Succ 100 MG Tablet PO (10:09)
[2017-06-30] MEDS: Enoxaparin 40 MG/0.4 ML Syringe SC (10:10)
[2017-06-30 10:13] VITALS: BP 122/58; PULSE 88; RESP 16; TEMP 36.5; O2SAT 95
[2017-06-30 12:01] LABS: Pathologist Review Reviewed
--- NOTE | 2017-06-30 13:24 | CASEMGMT ---
See RN CM Assessment Link. DC PLAN: Home on discharge. Nolan LOERAN RN ACM
[2017-06-30 13:27] VITALS: BP 107/58; PULSE 79; RESP 18; TEMP 36.8; O2SAT 97
[2017-06-30] MEDS: 0.9% Normal Saline 1,000 ML 125 ML IV (15:59)
[2017-06-30] MEDS: LORazepam 2 MG/ML Syringe 1 MG IV (16:10)
[2017-06-30 19:57] VITALS: BP 120/62; PULSE 80; RESP 16; TEMP 36.9; O2SAT 98
[2017-07-01] MEDS: 0.9% Normal Saline 1,000 ML 125 ML IV ×3 (01:05→19:15)
[2017-07-01 02:00] VITALS: BP 102/57; PULSE 72; RESP 16; TEMP 36.3; O2SAT 98
[2017-07-01] MEDS: Ketorolac 15 MG/ML Vial IV (06:24)
[2017-07-01 08:03] LABS: Absolute Neutrophil Count 3.6 X10^3/uL (2.0-7.7); Basophil# 0.03 X10^3/uL; Basophil% 0.6 % (0-1); Eosinophils% 3.8 % (0-5); Hematocrit 36.3 % (37-47); Hemoglobin 12.4 g/dl (12.0-15.0); Mean Corp Hgb Conc 34.2 g/gl (32-36); Mean Corpuscular Hgb 32.9 pg (27.0-32.0); Mean Corpuscular Volume 96.3 fL (81-99); Mean Platelet Vol. 9.1 fl (6.2-12.0); Monocyte# 0.57 X10^3/uL; Monocyte% 10.8 % (0-10); Neutrophil # 3.57 X10^3/uL (2.7-7.7); Neutrophil % 67.4 % (47-70); Platelet Count 140 K/mm3 (150-450); RBC Distribution Width CV 14.8 % (11.6-14.6); RBC Distribution Width SD 49.3 fl (35.1-43.9); Red Blood Count 3.77 M/mm3 (4.2-5.4); White Blood Count 5.3 K/mm3 (4.4-11.0)
[2017-07-01 08:05] LABS: Anion Gap 6 (5-15); BUN 37 mg/dL (7-18); BUN/Creat Ratio 18.1 RATIO (10-20); Chloride 113 mmol/L (98-107); Creatinine, Serum 2.04 mg/dL (0.55-1.02); EST Glomerular Filtration Rate 26 mL/min (>60); Est Glom Filt Rate - Afr Amer 32 mL/min (>60); Estimated Creatinine Clearance 21.06 ml/min; Glucose 99 mg/dL (74-106); Sodium Level 142 mmol/L (136-145)
[2017-07-01 08:06] LABS: POSITIVE COUNT NO; POSITIVE DIFFERENTIAL NO; POSITIVE MORPHOLOGY NO
[2017-07-01 09:05] VITALS: BP 169/86; PULSE 78; RESP 16; TEMP 37; O2SAT 97
[2017-07-01 09:08] VITALS: PULSE 77
[2017-07-01] MEDS: Metoprolol(XL)Succ 100 MG Tablet PO (09:08)
[2017-07-01] MEDS: Enoxaparin 40 MG/0.4 ML Syringe SC (09:09)
[2017-07-01] MEDS: Acetaminophen 500 MG Tablet 1000 MG PO (09:11)
[2017-07-01] MEDS: Aspirin 81 MG TAB.CHEW PO (09:11)
[2017-07-01] MEDS: Triamterene 37.5MG/Hctz 25MG Capsule 1 CAP PO (09:11)
--- NOTE | 2017-07-01 09:14 | PCM.PN.HOSP ---
Patient Problems: Active and Suspected Problems Viral encephalitis (Acute) Subjective: Yesterday, patient's headache was resolved and patient was tolerating diet. This morning, patient awoke with left-sided headache but less severe than it was when she initially presented. Patient also still has her left-sided neck pain but that is improved as well. Vitals/I&O's: Vital Signs Temp Pulse Resp BP Pulse Ox 37.0 C 77 16 169/86 H 97 07/01/17 09:05 07/01/17 09:08 07/01/17 09:05 07/01/17 09:05 07/01/17 09:05 Oxygen Delivery Method Room Air Weight: 87.5 kg Body Mass Index (BMI) 37.6 Intake and Output for Last 24 Hours 06/29/17 06/30/17 07/01/17 23:59 23:59 23:59 Intake Total 1213 / 1213 1836 / 1836 Output Total 300 / 300 Balance 913 / 913 1836 / 1836 General: Alert, Cooperative, No apparent distress HEENT: Atraumatic, Normocephalic, - - Temporal artery not palpable Neck: No Nodes, Thyroid Normal Size and Texture, - - Decreased tenderness of the trapezius muscle. Lungs: Clear to auscultation, Normal air movement, No rhonchi, No wheeze Cardiovascular: Regular rate, Regular Rhythm, Normal S1, Normal S2, No murmurs Abdomen: Bowel Sounds Present, Soft, Non Tender, Non-Distended, No Hepato-splenomegaly Extremities: No edema, No Calf Tenderness Skin: No rashes, No breakdown Psych/Mental Status: Normal Affect, Appropriate Laboratory Results 07/01/17 07:43: WBC 5.3, RBC 3.77 L, Hgb 12.4, Hct 36.3 L, MCV 96.3, MCH 32.9 H, MCHC 34.2, RDW 14.8 H, RDW Differential 49.3 H, Plt Count 140 L, MPV 9.1, Immature Gran % (Auto) 0.400, Neut % (Auto) 67.4, Lymph % (Auto) 17.0 L, [place] % (Auto) 10.8 H, Eos % (Auto) 3.8, Baso % (Auto) 0.6, Absolute Neuts (auto) 3.6, Absolute Lymphs (auto) 0.90, Total Counted Not Reportable 07/01/17 07:43: Sodium 142, Potassium 4.0, Chloride 113 H, Carbon Dioxide 23.0, Anion Gap 6, BUN 37 H, Creatinine 2.04 H, Estim Creat Clear Calc 21.06, Est GFR (MDRD) Af Amer 32 L, Est GFR (MDRD) Non-Af 26 L, BUN/Creatinine Ratio 18.1, Glucose 99, Calcium 8.0 L Current Medications Acetaminophen (Tylenol) 1,000 mg PO Q8 PRN PRN Reason: .HEADACHE/PAIN Last Admin: 07/01/17 09:11 Dose: 1,000 mg Allopurinol (Zyloprim) 300 mg PO PRN PRN PRN Reason: GOUT Aspirin (Aspirin, Baby) 81 mg PO DAILYCM [facility] Last Admin: 07/01/17 09:11 Dose: 81 mg Cyclobenzaprine HCl (Flexeril) 5 mg PO TID [facility] Last Admin: 07/01/17 05:58 Dose: 5 mg Enoxaparin Sodium (Lovenox) 40 mg SC DAILY@1000 [facility] Last Admin: 07/01/17 09:09 Dose: 40 mg Sodium Chloride () 1,000 mls @ 125 mls/hr IV .Q8H [facility] Last Admin: 07/01/17 09:06 Dose: 125 mls/hr Magnesium Hydroxide (Milk Of Magnesia) 30 ml PO DAILY PRN PRN PRN Reason: Constipation Metoprolol Succinate (Toprol Xl (Beta Nola)) 100 mg PO DAILY [facility] Last Admin: 07/01/17 09:08 Dose: 100 mg Sodium Chloride () 5 - 30 ml IV UD PRN PRN Reason: SALINE FLUSH Triamterene/HCTZ (Dyazide (G)) 1 cap PO DAILY [facility] Last Admin: 07/01/17 09:11 Dose: 1 cap Medical Necessity - Tobacco Use Smoking Status: Never smoker Tobacco Use: Non-smoker Assessment/Plan Active and Suspected Problems Viral encephalitis (Acute) 1. Viral encephalitis Acyclovir being discontinued given acute kidney injury Studies for enterovirus, HSV and VZV are pending. Patient thus far tolerated the spinal tap well. We will follow the patient in regards to any kind of post spinal headaches. Does have a headache but is actually worse when she lays down rather than sitting up. Will consult infectious disease for further input regards that they feel that this is encephalitis. Follow-up studies of enterovirus, HSV and VZV. 2. Acute kidney injury Is likely due to acyclovir, which is being discontinued Nephrology on consultation Running has gone up 2 up from 0.86. Discussed with pharmacy and see that the initial dosing of acyclovir should been based on ideal body weight on actual body weight and will be decreased to 450 I will give the patient IV fluids to help flush her kidneys. 3. Headache Likely secondary to above. Discontinue Toradol given acute kidney injury There is some muscle strain or spasm of her left trapezius which is apparently contributing to this pain overall. Give her a one-time dose of Valium but also start her on Flexeril. 3. Hypertension: Stable continue with her home meds DC triamterene/hydrochlorothiazide acute kidney injury. 4. DVT prophylaxis with low molecular weight heparin. 5. Disposition: On hold given the patient's overall response and how her kidney function plays out. I am not sure the the viral studies will be back prior to the patient being discharged. Hopefully patient could be discharged in next 24-48 hours. Code Visit Inpatient E&M: [id number] Subs Hosp L2
--- NOTE | 2017-07-01 09:19 | PN_ITS ---
Patient Problems: Active and Suspected Problems Viral encephalitis (Acute) Subjective: Yesterday, patient's headache was resolved and patient was tolerating diet. This morning, patient awoke with left-sided headache but less severe than it was when she initially presented. Patient also still has her left-sided neck pain but that is improved as well. Vitals/I&O's: Vital Signs Temp Pulse Resp BP Pulse Ox 37.0 C 77 16 169/86 H 97 07/01/17 09:05 07/01/17 09:08 07/01/17 09:05 07/01/17 09:05 07/01/17 09:05 Oxygen Delivery Method Room Air Weight: 87.5 kg Body Mass Index (BMI) 37.6 Intake and Output for Last 24 Hours 06/29/17 06/30/17 07/01/17 23:59 23:59 23:59 Intake Total 1213 / 1213 1836 / 1836 Output Total 300 / 300 Balance 913 / 913 1836 / 1836 General: Alert, Cooperative, No apparent distress HEENT: Atraumatic, Normocephalic, - - Temporal artery not palpable Neck: No Nodes, Thyroid Normal Size and Texture, - - Decreased tenderness of the trapezius muscle. Lungs: Clear to auscultation, Normal air movement, No rhonchi, No wheeze Cardiovascular: Regular rate, Regular Rhythm, Normal S1, Normal S2, No murmurs Abdomen: Bowel Sounds Present, Soft, Non Tender, Non-Distended, No Hepato- splenomegaly Extremities: No edema, No Calf Tenderness Skin: No rashes, No breakdown Psych/Mental Status: Normal Affect, Appropriate Laboratory Results 07/01/17 07:43: WBC 5.3, RBC 3.77 L, Hgb 12.4, Hct 36.3 L, MCV 96.3, MCH 32.9 H , MCHC 34.2, RDW 14.8 H, RDW Differential 49.3 H, Plt Count 140 L, MPV 9.1, Immature Gran % (Auto) 0.400, Neut % (Auto) 67.4, Lymph % (Auto) 17.0 L, [place] % (Auto) 10.8 H, Eos % (Auto) 3.8, Baso % (Auto) 0.6, Absolute Neuts (auto) 3.6, Absolute Lymphs (auto) 0.90, Total Counted Not Reportable 07/01/17 07:43: Sodium 142, Potassium 4.0, Chloride 113 H, Carbon Dioxide 23.0, Anion Gap 6, BUN 37 H, Creatinine 2.04 H, Estim Creat Clear Calc 21.06, Est GFR (MDRD) Af Amer 32 L, Est GFR (MDRD) Non-Af 26 L, BUN/Creatinine Ratio 18.1, Glucose 99, Calcium 8.0 L Current Medications Acetaminophen (Tylenol) 1,000 mg PO Q8 PRN PRN Reason: .HEADACHE/PAIN Last Admin: 07/01/17 09:11 Dose: 1,000 mg Allopurinol (Zyloprim) 300 mg PO PRN PRN PRN Reason: GOUT Aspirin (Aspirin, Baby) 81 mg PO DAILYCM [facility] Last Admin: 07/01/17 09:11 Dose: 81 mg Cyclobenzaprine HCl (Flexeril) 5 mg PO TID [facility] Last Admin: 07/01/17 05:58 Dose: 5 mg Enoxaparin Sodium (Lovenox) 40 mg SC DAILY@1000 [facility] Last Admin: 07/01/17 09:09 Dose: 40 mg Sodium Chloride () 1,000 mls @ 125 mls/hr IV .Q8H [facility] Last Admin: 07/01/17 09:06 Dose: 125 mls/hr Magnesium Hydroxide (Milk Of Magnesia) 30 ml PO DAILY PRN PRN PRN Reason: Constipation Metoprolol Succinate (Toprol Xl (Beta Nola)) 100 mg PO DAILY [facility] Last Admin: 07/01/17 09:08 Dose: 100 mg Sodium Chloride () 5 - 30 ml IV UD PRN PRN Reason: SALINE FLUSH Triamterene/HCTZ (Dyazide (G)) 1 cap PO DAILY [facility] Last Admin: 07/01/17 09:11 Dose: 1 cap Medical Necessity - Tobacco Use Smoking Status: Never smoker Tobacco Use: Non-smoker Assessment/Plan Active and Suspected Problems Viral encephalitis (Acute) 1. Viral encephalitis * Acyclovir being discontinued given acute kidney injury * Studies for enterovirus, HSV and VZV are pending. * Patient thus far tolerated the spinal tap well. We will follow the patient in regards to any kind of post spinal headaches. Does have a headache but is actually worse when she lays down rather than sitting up. * Will consult infectious disease for further input regards that they feel that this is encephalitis. * Follow-up studies of enterovirus, HSV and VZV. 2. Acute kidney injury * Is likely due to acyclovir, which is being discontinued * Nephrology on consultation * Running has gone up 2 up from 0.86. Discussed with pharmacy and see that the initial dosing of acyclovir should been based on ideal body weight on actual body weight and will be decreased to 450 * I will give the patient IV fluids to help flush her kidneys. 3. Headache * Likely secondary to above. * Discontinue Toradol given acute kidney injury * There is some muscle strain or spasm of her left trapezius which is apparently contributing to this pain overall. Give her a one-time dose of Valium but also start her on Flexeril. 3. Hypertension: * Stable continue with her home meds * DC triamterene/hydrochlorothiazide acute kidney injury. 4. DVT prophylaxis with low molecular weight heparin. 5. Disposition: On hold given the patient's overall response and how her kidney function plays out. I am not sure the the viral studies will be back prior to the patient being discharged. Hopefully patient could be discharged in next 24-48 hours. Code Visit Inpatient E&M: 96033 Subs Hosp L2
[2017-07-01 11:10] LABS: Bacteria 0 SEEN /hpf (None Seen); Mucous, Urine 0 SEEN /hpf (<or=2+); Red Blood Cells-Urine 0 SEEN /hpf (0-5)
[2017-07-01 11:15] LABS: Urine Sodium 75 mmol/L (Not Establ.)
[2017-07-01 11:20] LABS: Color, Urine Yellow (Yellow); Glucose, Dipstick Normal (Normal); Ketone-Dipstick Negative (Negative); Leukocyte Esterase-Dipstick Negative /ul (Negative); Nitrite-Dipstick Negative (Negative); Occult Blood-Urine Negative /ul (Negative); Protein-Dipstick Negative (Negative); Urine Bilirubin Dipstick Negative (Negative); Urine Clarity Clear (Clear); Urine Urobilinogen Normal (Normal); Urine pH 6.5 (5.0 - 8.0)
[2017-07-01 11:28] LABS: Squamous Epithelial Cells - UA 0-5 SEEN /hpf (5-10); White Blood Cells 0 SEEN /hpf (0-5)
--- NOTE | 2017-07-01 12:29 | PCM.CONS.R ---
Consultation - Renal 07/01/17 PCP/ Referring MD: Requesting physician: Caden Keith Primary care physician: Ronen Ferraro Reason for Consultation:: LOLA - History of Present Illness History of Present Illness: The patient is a 61 year old F who presented to ER with persistent headaches, neck stiffness with low grade fevers for the past week. Her headache was mostly bilateral initially then travelled to left side of neck and face. She had left sided facial pain with ear, neck, jaw pain and a sore throat. Denied vision changes, rash. She has nausea without vomiting. Appetite has been poor due to pain. She has not been able to work due to headache and neck pain. Denied NSAID use, took tylenol for pain at home that did not help relieve the pain. She has no history of migraine headaches. She underwent LP and was treated with acyclovir for viral encephalitis that was discontinued today for rise in creatinine She recently traveled back from [place] 2 weeks ago. Denied sick contacts. Had nonbloody diarrhea for one day. Creatinine on admit was 0.86 on 06/29 progressed to 1.13 on 06/30, 2.04 today. She had a CT of head and neck with iv contrast on 06/29. She is on thiazide diuretic for hypertension and received ketorolac for pain. She remains on iv fluids. She is nonoliguric. UA did not show protein or blood. - Allergies Allergies: Allergies amoxicillin [From Augmentin] Allergy (Verified 06/29/17 06:59) Upset Stomach clavulanic acid [From Augmentin] Allergy (Verified 06/29/17 06:59) Upset Stomach - Current Medications Current Medications: Current Medications Acetaminophen (Tylenol) 1,000 mg PO Q8 PRN PRN Reason: .HEADACHE/PAIN Last Admin: 07/01/17 09:11 Dose: 1,000 mg Allopurinol (Zyloprim) 300 mg PO PRN PRN PRN Reason: GOUT Aspirin (Aspirin, Baby) 81 mg PO DAILYCM [facility] Last Admin: 07/01/17 09:11 Dose: 81 mg Cyclobenzaprine HCl (Flexeril) 5 mg PO TID [facility] Last Admin: 07/01/17 05:58 Dose: 5 mg Enoxaparin Sodium (Lovenox) 40 mg SC DAILY@1000 [facility] Last Admin: 07/01/17 09:09 Dose: 40 mg Sodium Chloride () 1,000 mls @ 125 mls/hr IV .Q8H [facility] Last Admin: 07/01/17 09:06 Dose: 125 mls/hr Magnesium Hydroxide (Milk Of Magnesia) 30 ml PO DAILY PRN PRN PRN Reason: Constipation Metoprolol Succinate (Toprol Xl (Beta Nola)) 100 mg PO DAILY [facility] Last Admin: 07/01/17 09:08 Dose: 100 mg Sodium Chloride () 5 - 30 ml IV UD PRN PRN Reason: SALINE FLUSH Triamterene/HCTZ (Dyazide (G)) 1 cap PO DAILY [facility] Last Admin: 07/01/17 09:11 Dose: 1 cap - Past Medical History Past Medical History (Chronic Problems): Chronic Problems HTN (hypertension) (Chronic) - Past Surgical History Surgical History: total knee arthroplasty - Social History Marital Status: Smoking Status: Never smoker Alcohol: Rare Drugs: None - Family History Maternal History Items: - - No neurologic disorders Review of Systems Constitutional: Reports: Fever. Denies: Anorexia, Chills Eyes: Denies: Blurred vision, Vision Change HEENT: Reports: Head Aches - neck pain, left sided facial pain, Sore Throat, - - no mouth sores Cardiovascular: Denies: Chest Pain, Edema Respiratory: Denies: Cough, Shortness of Breath Gastrointestinal: Reports: Diarrhea - x1 nonbloody, Nausea. Denies: Abdominal Pain, Constipation, Vomiting Genitourinary: Denies: Dysuria Musculoskeletal: Reports: Neck Pain, - - jaw pain Skin: Denies: Rash Neurological: Denies: Balance problems Psychiatric: Denies: Anxiety, Depression Patient Problems: Active and Suspected Problems Viral encephalitis (Acute) Headache (Acute) - Physical Exam General: Alert, Oriented x3, Cooperative, - - in discomfort HEENT: Atraumatic, PERRLA, EOMI, Normocephalic, - - no facial rass Oral: No Gingival or Mucosal Lesions/ Ulcerations, Dry Mucosa Neck: - - neck stiffness Lungs: Clear to auscultation Cardiovascular: Regular rate Abdomen: Bowel Sounds Present, Soft, Non Tender, Non-Distended Extremities: No edema Skin: No rashes Musculoskeletal: No Muscle Wasting Lymphatic: No Cervical, Supraclavicular, or Inguinal Adenopathy Neurological: Cranial nerves II-XII grossly intact Psych/Mental Status: Normal Affect, Appropriate, Alert and oriented to time, place, person, mood and affect Vital Signs Temp Pulse Resp BP Pulse Ox 98.6 F 77 16 169/86 H 97 07/01/17 09:05 07/01/17 09:08 07/01/17 09:05 07/01/17 09:05 07/01/17 09:05 Oxygen Delivery Method Room Air Weight: 87.5 kg Body Mass Index (BMI) 37.6 Intake and Output for Last 24 Hours 06/29/17 06/30/17 07/01/17 23:59 23:59 23:59 Intake Total 1213 / 1213 2501 / 2501 Output Total 300 / 300 Balance 913 / 913 2501 / 2501 Laboratory Tests Past 24 Hrs 07/01/17 07/01/17 07/01/17 07:43 07:43 10:50 WBC 5.3 RBC 3.77 L Hgb 12.4 Hct 36.3 L MCV 96.3 MCH 32.9 H MCHC 34.2 RDW 14.8 H RDW Differential 49.3 H Plt Count 140 L MPV 9.1 Immature Gran % (Auto) 0.400 Neut % (Auto) 67.4 Lymph % (Auto) 17.0 L [place] % (Auto) 10.8 H Eos % (Auto) 3.8 Baso % (Auto) 0.6 Absolute Neuts (auto) 3.6 Absolute Lymphs (auto) 0.90 Total Counted Not Reportable Eos Smear Total Cells Pending Sodium 142 Potassium 4.0 Chloride 113 H Carbon Dioxide 23.0 Anion Gap 6 BUN 37 H Creatinine 2.04 H Estim Creat Clear Calc 21.06 Est GFR (MDRD) Af Amer 32 L Est GFR (MDRD) Non-Af 26 L BUN/Creatinine Ratio 18.1 Glucose 99 Calcium 8.0 L Urine Color Urine Clarity Urine pH Ur Specific [place] Urine Protein Urine Glucose (UA) Urine Ketones Urine Occult Blood Urine Nitrite Urine Bilirubin Urine Urobilinogen Ur Leukocyte Esterase Urine RBC Urine WBC Ur Squamous Epith Cells Urine Bacteria Urine Mucus Ur Random Sodium Urine Creatinine 07/01/17 07/01/17 07/01/17 10:50 10:50 10:50 WBC RBC Hgb Hct MCV MCH MCHC RDW RDW Differential Plt Count MPV Immature Gran % (Auto) Neut % (Auto) Lymph % (Auto) [place] % (Auto) Eos % (Auto) Baso % (Auto) Absolute Neuts (auto) Absolute Lymphs (auto) Total Counted Eos Smear Total Cells Sodium Potassium Chloride Carbon Dioxide Anion Gap BUN Creatinine Estim Creat Clear Calc Est GFR (MDRD) Af Amer Est GFR (MDRD) Non-Af BUN/Creatinine Ratio Glucose Calcium Urine Color Yellow Urine Clarity Clear Urine pH 6.5 Ur Specific [place] 1.010 Urine Protein Negative Urine Glucose (UA) Normal Urine Ketones Negative Urine Occult Blood Negative Urine Nitrite Negative Urine Bilirubin Negative Urine Urobilinogen Normal Ur Leukocyte Esterase Negative Urine RBC 0 SEEN Urine WBC 0 SEEN Ur Squamous Epith Cells 0-5 SEEN Urine Bacteria 0 SEEN Urine Mucus 0 SEEN Ur Random Sodium 75 Urine Creatinine 33.90 Assessment/Plan Active and Suspected Problems Viral encephalitis (Acute) Headache (Acute) 1. LOLA suspect due to contrast nephropathy in presence of dehydration. FeNA>1% to suggest intrinsic renal failure. Avoid NSAids, nephrotoxins. Hold thiazide diuretic. Agree with iv fluids. Hold on acyclovir for now due to renal failure. UA without protein or blood to suggest crystal induced renal failure from acyclovir. 2. Viral meningitis, low grade fever. Primary mgmt. Await cx 3. HTN BP stable 4. Cephalgia s/p LP cx pending. CT head with iv contrast reviewed.
--- NOTE | 2017-07-01 12:35 | CON.PCM_ITS ---
Consultation - Renal 07/01/17 PCP/ Referring MD: Requesting physician: Caden Keith Primary care physician: Ronen Ferraro Reason for Consultation:: LOLA - History of Present Illness History of Present Illness: The patient is a 61 year old F who presented to ER with persistent headaches, neck stiffness with low grade fevers for the past week. Her headache was mostly bilateral initially then travelled to left side of neck and face. She had left sided facial pain with ear, neck, jaw pain and a sore throat. Denied vision changes, rash. She has nausea without vomiting. Appetite has been poor due to pain. She has not been able to work due to headache and neck pain. Denied NSAID use, took tylenol for pain at home that did not help relieve the pain. She has no history of migraine headaches. She underwent LP and was treated with acyclovir for viral encephalitis that was discontinued today for rise in creatinine She recently traveled back from [place] 2 weeks ago. Denied sick contacts. Had nonbloody diarrhea for one day. Creatinine on admit was 0.86 on progressed to 1.13 on 06/30, 2.04 today. She had a CT of head and neck with iv contrast on 06/29. She is on thiazide diuretic for hypertension and received ketorolac for pain. She remains on iv fluids. She is nonoliguric. UA did not show protein or blood. - Allergies Allergies: Allergies amoxicillin [From Augmentin] Allergy (Verified 06/29/17 06:59) Upset Stomach clavulanic acid [From Augmentin] Allergy (Verified 06/29/17 06:59) Upset Stomach - Current Medications Current Medications: Current Medications Acetaminophen (Tylenol) 1,000 mg PO Q8 PRN PRN Reason: .HEADACHE/PAIN Last Admin: 07/01/17 09:11 Dose: 1,000 mg Allopurinol (Zyloprim) 300 mg PO PRN PRN PRN Reason: GOUT Aspirin (Aspirin, Baby) 81 mg PO DAILYCM [facility] Last Admin: 07/01/17 09:11 Dose: 81 mg Cyclobenzaprine HCl (Flexeril) 5 mg PO TID [facility] Last Admin: 07/01/17 05:58 Dose: 5 mg Enoxaparin Sodium (Lovenox) 40 mg SC DAILY@1000 [facility] Last Admin: 07/01/17 09:09 Dose: 40 mg Sodium Chloride () 1,000 mls @ 125 mls/hr IV .Q8H [facility] Last Admin: 07/01/17 09:06 Dose: 125 mls/hr Magnesium Hydroxide (Milk Of Magnesia) 30 ml PO DAILY PRN PRN PRN Reason: Constipation Metoprolol Succinate (Toprol Xl (Beta Nola)) 100 mg PO DAILY [facility] Last Admin: 07/01/17 09:08 Dose: 100 mg Sodium Chloride () 5 - 30 ml IV UD PRN PRN Reason: SALINE FLUSH Triamterene/HCTZ (Dyazide (G)) 1 cap PO DAILY [facility] Last Admin: 07/01/17 09:11 Dose: 1 cap - Past Medical History Past Medical History (Chronic Problems): Chronic Problems HTN (hypertension) (Chronic) - Past Surgical History Surgical History: total knee arthroplasty - Social History Marital Status: Smoking Status: Never smoker Alcohol: Rare Drugs: None - Family History Maternal History Items: - - No neurologic disorders Review of Systems Constitutional: Reports: Fever. Denies: Anorexia, Chills Eyes: Denies: Blurred vision, Vision Change HEENT: Reports: Head Aches - neck pain, left sided facial pain, Sore Throat, - - no mouth sores Cardiovascular: Denies: Chest Pain, Edema Respiratory: Denies: Cough, Shortness of Breath Gastrointestinal: Reports: Diarrhea - x1 nonbloody, Nausea. Denies: Abdominal Pain, Constipation, Vomiting Genitourinary: Denies: Dysuria Musculoskeletal: Reports: Neck Pain, - - jaw pain Skin: Denies: Rash Neurological: Denies: Balance problems Psychiatric: Denies: Anxiety, Depression Patient Problems: Active and Suspected Problems Viral encephalitis (Acute) Headache (Acute) - Physical Exam General: Alert, Oriented x3, Cooperative, - - in discomfort HEENT: Atraumatic, PERRLA, EOMI, Normocephalic, - - no facial rass Oral: No Gingival or Mucosal Lesions/ Ulcerations, Dry Mucosa Neck: - - neck stiffness Lungs: Clear to auscultation Cardiovascular: Regular rate Abdomen: Bowel Sounds Present, Soft, Non Tender, Non-Distended Extremities: No edema Skin: No rashes Musculoskeletal: No Muscle Wasting Lymphatic: No Cervical, Supraclavicular, or Inguinal Adenopathy Neurological: Cranial nerves II-XII grossly intact Psych/Mental Status: Normal Affect, Appropriate, Alert and oriented to time, place, person, mood and affect Vital Signs Temp Pulse Resp BP Pulse Ox 98.6 F 77 16 169/86 H 97 07/01/17 09:05 07/01/17 09:08 07/01/17 09:05 07/01/17 09:05 07/01/17 09:05 Oxygen Delivery Method Room Air Weight: 87.5 kg Body Mass Index (BMI) 37.6 Intake and Output for Last 24 Hours 06/29/17 06/30/17 07/01/17 23:59 23:59 23:59 Intake Total 1213 / 1213 2501 / 2501 Output Total 300 / 300 Balance 913 / 913 2501 / 2501 Laboratory Tests Past 24 Hrs 07/01/17 07/01/17 07/01/17 07:43 07:43 10:50 WBC 5.3 RBC 3.77 L Hgb 12.4 Hct 36.3 L MCV 96.3 MCH 32.9 H MCHC 34.2 RDW 14.8 H RDW Differential 49.3 H Plt Count 140 L MPV 9.1 Immature Gran % (Auto) 0.400 Neut % (Auto) 67.4 Lymph % (Auto) 17.0 L [place] % (Auto) 10.8 H Eos % (Auto) 3.8 Baso % (Auto) 0.6 Absolute Neuts (auto) 3.6 Absolute Lymphs (auto) 0.90 Total Counted Not Reportable Eos Smear Total Cells Pending Sodium 142 Potassium 4.0 Chloride 113 H Carbon Dioxide 23.0 Anion Gap 6 BUN 37 H Creatinine 2.04 H Estim Creat Clear Calc 21.06 Est GFR (MDRD) Af Amer 32 L Est GFR (MDRD) Non-Af 26 L BUN/Creatinine Ratio 18.1 Glucose 99 Calcium 8.0 L Urine Color Urine Clarity Urine pH Ur Specific [place] Urine Protein Urine Glucose (UA) Urine Ketones Urine Occult Blood Urine Nitrite Urine Bilirubin Urine Urobilinogen Ur Leukocyte Esterase Urine RBC Urine WBC Ur Squamous Epith Cells Urine Bacteria Urine Mucus Ur Random Sodium Urine Creatinine 07/01/17 07/01/17 07/01/17 10:50 10:50 10:50 WBC RBC Hgb Hct MCV MCH MCHC RDW RDW Differential Plt Count MPV Immature Gran % (Auto) Neut % (Auto) Lymph % (Auto) [place] % (Auto) Eos % (Auto) Baso % (Auto) Absolute Neuts (auto) Absolute Lymphs (auto) Total Counted Eos Smear Total Cells Sodium Potassium Chloride Carbon Dioxide Anion Gap BUN Creatinine Estim Creat Clear Calc Est GFR (MDRD) Af Amer Est GFR (MDRD) Non-Af BUN/Creatinine Ratio Glucose Calcium Urine Color Yellow Urine Clarity Clear Urine pH 6.5 Ur Specific [place] 1.010 Urine Protein Negative Urine Glucose (UA) Normal Urine Ketones Negative Urine Occult Blood Negative Urine Nitrite Negative Urine Bilirubin Negative Urine Urobilinogen Normal Ur Leukocyte Esterase Negative Urine RBC 0 SEEN Urine WBC 0 SEEN Ur Squamous Epith Cells 0-5 SEEN Urine Bacteria 0 SEEN Urine Mucus 0 SEEN Ur Random Sodium 75 Urine Creatinine 33.90 Assessment/Plan Active and Suspected Problems Viral encephalitis (Acute) Headache (Acute) 1. LOLA suspect due to contrast nephropathy in presence of dehydration. FeNA>1% to suggest intrinsic renal failure. Avoid NSAids, nephrotoxins. Hold thiazide diuretic. Agree with iv fluids. Hold on acyclovir for now due to renal failure. UA without protein or blood to suggest crystal induced renal failure from acyclovir. 2. Viral meningitis, low grade fever. Primary mgmt. Await cx 3. HTN BP stable 4. Cephalgia s/p LP cx pending. CT head with iv contrast reviewed.
--- NOTE | 2017-07-01 12:36 | CON.PCM_ITS ---
Problem List (1) Headache Status: Acute Reason for Consult: headache Consulted by: Dr. Keith History of Present Illness: The patient is a 61 year old F who presented 06/29 with one week of headache, neck pain, L sided facial numbness. Was in [place] at [facility] over the week before . No bug bites during that trip. No diarrhea. No sick contacts. Developed severe posterior headache, difficulty moving neck. No congestion, no fever/chills, no confusion, no vision changes. Went to local ED in [place] around 06/27, given abx for sinusitis (she thinks clinda), but no improvement. Came to ED here. Wbc mildly elevated at 11. Had LP done, started on acyclovir which then had to be stopped due to OLLA. Now feeling better, no neck pain, but still some headache. Denies any altered speech or facial droop. Full ROS performed and neg except as noted above. - Medical History Past Medical History (Chronic Problems): Chronic Problems HTN (hypertension) (Chronic) Allergies/Adverse Reactions: Allergies amoxicillin [From Augmentin] Allergy (Verified 06/29/17 06:59) Upset Stomach clavulanic acid [From Augmentin] Allergy (Verified 06/29/17 06:59) Upset Stomach Home Medications: Ambulatory Orders Medication Instructions Recorded Allopurinol [Allopurinol] 1 tab PO PRN PRN 06/29/17 Aspirin 81 mg PO DAILY 06/29/17 Metoprolol(XL)Succ [Toprol Xl 100 tab PO DAILY 06/29/17 (Beta Nola)] Triamterene 37.5MG/Hctz 25MG 1 tab PO DAILY 06/29/17 [Dyazide (G)] - Social History Tobacco Use: non-smoker Vital Signs Temp Pulse Resp BP Pulse Ox 98.6 F 77 16 169/86 H 97 07/01/17 09:05 07/01/17 09:08 07/01/17 09:05 07/01/17 09:05 07/01/17 09:05 Oxygen Delivery Method Room Air Weight: 87.5 kg Body Mass Index (BMI) 37.6 Laboratory Tests Past 24 Hrs 07/01/17 07/01/17 07/01/17 07:43 07:43 10:50 WBC 5.3 RBC 3.77 L Hgb 12.4 Hct 36.3 L MCV 96.3 MCH 32.9 H MCHC 34.2 RDW 14.8 H RDW Differential 49.3 H Plt Count 140 L MPV 9.1 Immature Gran % (Auto) 0.400 Neut % (Auto) 67.4 Lymph % (Auto) 17.0 L [place] % (Auto) 10.8 H Eos % (Auto) 3.8 Baso % (Auto) 0.6 Absolute Neuts (auto) 3.6 Absolute Lymphs (auto) 0.90 Total Counted Not Reportable Eos Smear Total Cells Pending Sodium 142 Potassium 4.0 Chloride 113 H Carbon Dioxide 23.0 Anion Gap 6 BUN 37 H Creatinine 2.04 H Estim Creat Clear Calc 21.06 Est GFR (MDRD) Af Amer 32 L Est GFR (MDRD) Non-Af 26 L BUN/Creatinine Ratio 18.1 Glucose 99 Calcium 8.0 L Urine Color Urine Clarity Urine pH Ur Specific [place] Urine Protein Urine Glucose (UA) Urine Ketones Urine Occult Blood Urine Nitrite Urine Bilirubin Urine Urobilinogen Ur Leukocyte Esterase Urine RBC Urine WBC Ur Squamous Epith Cells Urine Bacteria Urine Mucus Ur Random Sodium Urine Creatinine 07/01/17 07/01/17 07/01/17 10:50 10:50 10:50 WBC RBC Hgb Hct MCV MCH MCHC RDW RDW Differential Plt Count MPV Immature Gran % (Auto) Neut % (Auto) Lymph % (Auto) [place] % (Auto) Eos % (Auto) Baso % (Auto) Absolute Neuts (auto) Absolute Lymphs (auto) Total Counted Eos Smear Total Cells Sodium Potassium Chloride Carbon Dioxide Anion Gap BUN Creatinine Estim Creat Clear Calc Est GFR (MDRD) Af Amer Est GFR (MDRD) Non-Af BUN/Creatinine Ratio Glucose Calcium Urine Color Yellow Urine Clarity Clear Urine pH 6.5 Ur Specific [place] 1.010 Urine Protein Negative Urine Glucose (UA) Normal Urine Ketones Negative Urine Occult Blood Negative Urine Nitrite Negative Urine Bilirubin Negative Urine Urobilinogen Normal Ur Leukocyte Esterase Negative Urine RBC 0 SEEN Urine WBC 0 SEEN Ur Squamous Epith Cells 0-5 SEEN Urine Bacteria 0 SEEN Urine Mucus 0 SEEN Ur Random Sodium 75 Urine Creatinine 33.90 - Other Studies Radiology: [] reviewed Other Studies: [] Route of nutrition/ use of supplements: [] Nutritional Intake: [] IV Site: [] Mukherjee Catheter: [] - Physical Exam General: Alert, Oriented x3, Cooperative, No apparent distress HEENT: Atraumatic, PERRLA, EOMI Neck: Supple, No Nodes Lungs: Clear to auscultation, Normal air movement Cardiovascular: Regular rate, Regular Rhythm, No murmurs Abdomen: Bowel Sounds Present, Soft, Non Tender, Non-Distended Extremities: No edema Skin: No rashes IV Site: Peripheral, without redness Musculoskeletal: No Tenderness to Palpation of Joints or Extremities Neurological: Cranial nerves II-XII grossly intact - Assessment/Plan Antibiotics: [] Assessment/Plan: [] Active and Suspected Problems Viral encephalitis (Acute) CSF with only 1 wbc seen, so no evidence of meningitis or encephalitis. No need for droplet isolation or further antiviral medication. Neck pain resolved , no fever, normal wbc here. Still some headache and L sided facial paresthesias. Does not appear to have any droop or weakness. Would recommend neuro eval given atypical and persistent/severe symptoms. Low suspicion for infectious process. Thank you, will follow as needed. D/w Dr. Keith.
[2017-07-01 13:29] VITALS: BP 141/74; PULSE 77; RESP 16; TEMP 36.8; O2SAT 97
[2017-07-01] MEDS: Amitriptyline 25 MG Tablet 50 MG PO ×2 (14:45→22:24)
[2017-07-01 20:40] VITALS: BP 131/70; PULSE 73; RESP 16; TEMP 36.8; O2SAT 95
[2017-07-01 22:15] VITALS: BP 128/74; PULSE 75; RESP 16; TEMP 36.6; O2SAT 94
[2017-07-02 02:50] VITALS: BP 116/60; PULSE 76; RESP 16; TEMP 36.6; O2SAT 94
[2017-07-02] MEDS: 0.9% Normal Saline 1,000 ML 125 ML IV (02:54)
[2017-07-02 07:11] LABS: Hematocrit 37.8 % (37-47); Hemoglobin 12.9 g/dl (12.0-15.0); Mean Corp Hgb Conc 34.1 g/gl (32-36); Mean Corpuscular Hgb 31.9 pg (27.0-32.0); Mean Corpuscular Volume 93.3 fL (81-99); Mean Platelet Vol. 9.4 fl (6.2-12.0); Platelet Count 149 K/mm3 (150-450); RBC Distribution Width CV 14.2 % (11.6-14.6); RBC Distribution Width SD 48.1 fl (35.1-43.9); Red Blood Count 4.05 M/mm3 (4.2-5.4); Scan Indicated on CBC? Y/N NO; White Blood Count 6.6 K/mm3 (4.4-11.0)
[2017-07-02 07:31] LABS: Anion Gap 8 (5-15); BUN 27 mg/dL (7-18); BUN/Creat Ratio 19.7 RATIO (10-20); Calcium,Total 8.6 mg/dL (8.5-10.1); Chloride 110 mmol/L (98-107); Creatinine, Serum 1.37 mg/dL (0.55-1.02); EST Glomerular Filtration Rate 42 mL/min (>60); Est Glom Filt Rate - Afr Amer 51 mL/min (>60); Estimated Creatinine Clearance 31.37 ml/min; Glucose 151 mg/dL (74-106); Potassium 4.2 mmol/L (3.5-5.1); Sodium Level 143 mmol/L (136-145)
[2017-07-02 08:17] VITALS: BP 131/78; PULSE 82; RESP 18; TEMP 36.6; O2SAT 94
[2017-07-02] MEDS: Enoxaparin 40 MG/0.4 ML Syringe SC (08:22)
[2017-07-02] MEDS: Aspirin 81 MG TAB.CHEW PO (08:22)
[2017-07-02 08:23] VITALS: BP 131/78; PULSE 82
[2017-07-02] MEDS: Metoprolol(XL)Succ 100 MG Tablet PO (08:23)
[2017-07-02] MEDS: Acetaminophen 500 MG Tablet 1000 MG PO (10:04)
--- NOTE | 2017-07-02 11:02 | PCM.PN.HOSP ---
Patient Problems: Active and Suspected Problems Viral encephalitis (Acute) Headache (Acute) Subjective: felt well this AM, but after she got up headache came back. overall, still improved. less neck pain. Vitals/I&O's: Vital Signs Temp Pulse Resp BP Pulse Ox 36.6 C 82 18 131/78 H 94 07/02/17 08:17 07/02/17 08:23 07/02/17 08:17 07/02/17 08:23 07/02/17 08:17 Oxygen Delivery Method Room Air Weight: 87.5 kg Body Mass Index (BMI) 37.6 Intake and Output for Last 24 Hours 06/30/17 07/01/17 07/02/17 23:59 23:59 23:59 Intake Total 1213 / 1213 3800 / 3800 416 / 416 Output Total 300 / 300 Balance 913 / 913 3800 / 3800 416 / 416 General: Alert, Cooperative, No apparent distress HEENT: Atraumatic, Normocephalic Neck: No Nodes, Thyroid Normal Size and Texture, - - decreased tenderness of left trapezius muscle. Lungs: Clear to auscultation, Normal air movement, No rhonchi, No wheeze Abdomen: Bowel Sounds Present, Soft, Non Tender, Non-Distended, No Hepato-splenomegaly Extremities: No edema, No Calf Tenderness Skin: No rashes, No breakdown Psych/Mental Status: Normal Affect, Appropriate Laboratory Results 07/01/17 10:50: Eos Smear Total Cells Pending 07/01/17 10:50: Urine Creatinine 33.90 07/01/17 10:50: Urine Color Yellow, Urine Clarity Clear, Urine pH 6.5, Ur Specific [place] 1.010, Urine Protein Negative, Urine Glucose (UA) Normal, Urine Ketones Negative, Urine Occult Blood Negative, Urine Nitrite Negative, Urine Bilirubin Negative, Urine Urobilinogen Normal, Ur Leukocyte Esterase Negative, Urine RBC 0 SEEN, Urine WBC 0 SEEN, Ur Squamous Epith Cells 0-5 SEEN, Urine Bacteria 0 SEEN, Urine Mucus 0 SEEN 07/01/17 10:50: Ur Random Sodium 75 07/02/17 06:28: WBC 6.6, RBC 4.05 L, Hgb 12.9, Hct 37.8, MCV 93.3, MCH 31.9, MCHC 34.1, RDW 14.2, RDW Differential 48.1 H, Plt Count 149 L, MPV 9.4 07/02/17 06:28: Sodium 143, Potassium 4.2, Chloride 110 H, Carbon Dioxide 25.0, Anion Gap 8, BUN 27 H, Creatinine 1.37 H, Estim Creat Clear Calc 31.37, Est GFR (MDRD) Af Amer 51 L, Est GFR (MDRD) Non-Af 42 L, BUN/Creatinine Ratio 19.7, Glucose 151 H, Calcium 8.6 Current Medications Acetaminophen (Tylenol) 1,000 mg PO Q8 PRN PRN Reason: .HEADACHE/PAIN Last Admin: 07/02/17 10:04 Dose: 1,000 mg Allopurinol (Zyloprim) 300 mg PO PRN PRN PRN Reason: GOUT Amitriptyline HCl (Elavil) 50 mg PO QHS [facility] Last Admin: 07/01/17 22:24 Dose: 50 mg Aspirin (Aspirin, Baby) 81 mg PO DAILYCM [facility] Last Admin: 07/02/17 08:22 Dose: 81 mg Cyclobenzaprine HCl (Flexeril) 5 mg PO TID [facility] Last Admin: 07/02/17 05:12 Dose: 5 mg Enoxaparin Sodium (Lovenox) 40 mg SC DAILY@1000 [facility] Last Admin: 07/02/17 08:22 Dose: 40 mg Methylprednisolone 1,000 mg/ (Sodium Chloride) 116 mls @ 100 mls/hr IV DAILY [facility] Last Admin: 07/02/17 09:57 Dose: 100 mls/hr Valproic Acid 1,000 mg/ (Dextrose) 60 mls @ 50 mls/hr IV DAILY [facility] Last Admin: 07/01/17 14:41 Dose: 50 mls/hr Magnesium Hydroxide (Milk Of Magnesia) 30 ml PO DAILY PRN PRN PRN Reason: Constipation Metoprolol Succinate (Toprol Xl (Beta Nola)) 100 mg PO DAILY [facility] Last Admin: 07/02/17 08:23 Dose: 100 mg Sodium Chloride () 5 - 30 ml IV UD PRN PRN Reason: SALINE FLUSH Medical Necessity - Tobacco Use Smoking Status: Never smoker Tobacco Use: Non-smoker Assessment/Plan Active and Suspected Problems Viral encephalitis (Acute) Headache (Acute) 1. Viral encephalitis Acyclovir being discontinued given acute kidney injury Studies for enterovirus, HSV and VZV are pending. Patient thus far tolerated the spinal tap well. We will follow the patient in regards to any kind of post spinal headaches. Does have a headache but is actually worse when she lays down rather than sitting up. Will consult infectious disease for further input regards that they feel that this is encephalitis. Follow-up studies of enterovirus, HSV and VZV. Per Dr. Tipton, no encephalitis. 2. Acute kidney injury Is likely due to acyclovir and IV contrast Nephrology on consultation Improved today. dc IVF 3. Headache Migraine? Spinal headache now? neuro on consult. started on Elavil and Depakote await neuro input. 3. Hypertension: Stable continue with her home meds DC triamterene/hydrochlorothiazide acute kidney injury. 4. DVT prophylaxis with low molecular weight heparin. 5. Disposition: pending headache and neuro input. DW patient's family. Code Visit Inpatient E&M: 28256 Subs Hosp L2
--- NOTE | 2017-07-02 11:08 | PN_ITS ---
Patient Problems: Active and Suspected Problems Viral encephalitis (Acute) Headache (Acute) Subjective: felt well this AM, but after she got up headache came back. overall, still improved. less neck pain. Vitals/I&O's: Vital Signs Temp Pulse Resp BP Pulse Ox 36.6 C 82 18 131/78 H 94 07/02/17 08:17 07/02/17 08:23 07/02/17 08:17 07/02/17 08:23 07/02/17 08:17 Oxygen Delivery Method Room Air Weight: 87.5 kg Body Mass Index (BMI) 37.6 Intake and Output for Last 24 Hours 06/30/17 07/01/17 07/02/17 23:59 23:59 23:59 Intake Total 1213 / 1213 3800 / 3800 416 / 416 Output Total 300 / 300 Balance 913 / 913 3800 / 3800 416 / 416 General: Alert, Cooperative, No apparent distress HEENT: Atraumatic, Normocephalic Neck: No Nodes, Thyroid Normal Size and Texture, - - decreased tenderness of left trapezius muscle. Lungs: Clear to auscultation, Normal air movement, No rhonchi, No wheeze Abdomen: Bowel Sounds Present, Soft, Non Tender, Non-Distended, No Hepato- splenomegaly Extremities: No edema, No Calf Tenderness Skin: No rashes, No breakdown Psych/Mental Status: Normal Affect, Appropriate Laboratory Results 07/01/17 10:50: Eos Smear Total Cells Pending 07/01/17 10:50: Urine Creatinine 33.90 07/01/17 10:50: Urine Color Yellow, Urine Clarity Clear, Urine pH 6.5, Ur Specific [place] 1.010, Urine Protein Negative, Urine Glucose (UA) Normal, Urine Ketones Negative, Urine Occult Blood Negative, Urine Nitrite Negative, Urine Bilirubin Negative, Urine Urobilinogen Normal, Ur Leukocyte Esterase Negative, Urine RBC 0 SEEN, Urine WBC 0 SEEN, Ur Squamous Epith Cells 0-5 SEEN, Urine Bacteria 0 SEEN, Urine Mucus 0 SEEN 07/01/17 10:50: Ur Random Sodium 75 07/02/17 06:28: WBC 6.6, RBC 4.05 L, Hgb 12.9, Hct 37.8, MCV 93.3, MCH 31.9, MCHC 34.1, RDW 14.2, RDW Differential 48.1 H, Plt Count 149 L, MPV 9.4 07/02/17 06:28: Sodium 143, Potassium 4.2, Chloride 110 H, Carbon Dioxide 25.0, Anion Gap 8, BUN 27 H, Creatinine 1.37 H, Estim Creat Clear Calc 31.37, Est GFR (MDRD) Af Amer 51 L, Est GFR (MDRD) Non-Af 42 L, BUN/Creatinine Ratio 19.7, Glucose 151 H, Calcium 8.6 Current Medications Acetaminophen (Tylenol) 1,000 mg PO Q8 PRN PRN Reason: .HEADACHE/PAIN Last Admin: 07/02/17 10:04 Dose: 1,000 mg Allopurinol (Zyloprim) 300 mg PO PRN PRN PRN Reason: GOUT Amitriptyline HCl (Elavil) 50 mg PO QHS [facility] Last Admin: 07/01/17 22:24 Dose: 50 mg Aspirin (Aspirin, Baby) 81 mg PO DAILYCM [facility] Last Admin: 07/02/17 08:22 Dose: 81 mg Cyclobenzaprine HCl (Flexeril) 5 mg PO TID [facility] Last Admin: 07/02/17 05:12 Dose: 5 mg Enoxaparin Sodium (Lovenox) 40 mg SC DAILY@1000 [facility] Last Admin: 07/02/17 08:22 Dose: 40 mg Methylprednisolone 1,000 mg/ (Sodium Chloride) 116 mls @ 100 mls/hr IV DAILY [facility] Last Admin: 07/02/17 09:57 Dose: 100 mls/hr Valproic Acid 1,000 mg/ (Dextrose) 60 mls @ 50 mls/hr IV DAILY [facility] Last Admin: 07/01/17 14:41 Dose: 50 mls/hr Magnesium Hydroxide (Milk Of Magnesia) 30 ml PO DAILY PRN PRN PRN Reason: Constipation Metoprolol Succinate (Toprol Xl (Beta Nola)) 100 mg PO DAILY [facility] Last Admin: 07/02/17 08:23 Dose: 100 mg Sodium Chloride () 5 - 30 ml IV UD PRN PRN Reason: SALINE FLUSH Medical Necessity - Tobacco Use Smoking Status: Never smoker Tobacco Use: Non-smoker Assessment/Plan Active and Suspected Problems Viral encephalitis (Acute) Headache (Acute) 1. Viral encephalitis * Acyclovir being discontinued given acute kidney injury * Studies for enterovirus, HSV and VZV are pending. * Patient thus far tolerated the spinal tap well. We will follow the patient in regards to any kind of post spinal headaches. Does have a headache but is actually worse when she lays down rather than sitting up. * Will consult infectious disease for further input regards that they feel that this is encephalitis. * Follow-up studies of enterovirus, HSV and VZV. * Per Dr. Tipton, no encephalitis. 2. Acute kidney injury * Is likely due to acyclovir and IV contrast * Nephrology on consultation * Improved today. * dc IVF 3. Headache * Migraine? Spinal headache now? * neuro on consult. started on Elavil and Depakote * await neuro input. 3. Hypertension: * Stable continue with her home meds * DC triamterene/hydrochlorothiazide acute kidney injury. 4. DVT prophylaxis with low molecular weight heparin. 5. Disposition: pending headache and neuro input. DW patient's family. Code Visit Inpatient E&M: 29891 Subs Hosp L2
--- NOTE | 2017-07-02 13:06 | NURSING ---
This nurse contacted Dr. Rodriges's answering service and informed him again of the consult since it has been 24hrs and patient has not been seen by Dr. Bear yet.
[2017-07-02 14:15] VITALS: BP 120/66; PULSE 89; RESP 18; TEMP 36.6; O2SAT 96
[2017-07-02 19:59] VITALS: BP 135/64; PULSE 92; RESP 16; TEMP 36.7; O2SAT 97
[2017-07-02] MEDS: Amitriptyline 25 MG Tablet 50 MG PO (23:15)
[2017-07-03] VITALS (7 sets, daily range): BP systolic 131–206; BP diastolic 47–81; PULSE 57–73; RESP 14–18; TEMP 36.2–36.8; O2SAT 94–98
[2017-07-03] MEDS: 0.9% NaCl Peripheral Flush Adult/Peds IV ×2 (06:13→20:10)
[2017-07-03] MEDS: Acetaminophen 500 MG Tablet 1000 MG PO ×2 (06:21→16:32)
[2017-07-03 06:25] LABS: Anion Gap 8 (5-15); BUN 23 mg/dL (7-18); BUN/Creat Ratio 20.4 RATIO (10-20); Calcium,Total 8.8 mg/dL (8.5-10.1); Chloride 109 mmol/L (98-107); Creatinine, Serum 1.13 mg/dL (0.55-1.02); EST Glomerular Filtration Rate 52 mL/min (>60); Est Glom Filt Rate - Afr Amer 63 mL/min (>60); Estimated Creatinine Clearance 38.03 ml/min; Glucose 150 mg/dL (74-106); Potassium 3.9 mmol/L (3.5-5.1); Sodium Level 144 mmol/L (136-145)
--- NOTE | 2017-07-03 06:45 | NURSING ---
Reviewed Julieth Henry RN charting.
[2017-07-03] MEDS: Aspirin 81 MG TAB.CHEW PO (07:56)
[2017-07-03] MEDS: Enoxaparin 40 MG/0.4 ML Syringe SC (09:35)
[2017-07-03] MEDS: Metoprolol(XL)Succ 100 MG Tablet PO (09:36)
--- NOTE | 2017-07-03 10:16 | PN_ITS ---
Patient Problems: Active and Suspected Problems Viral encephalitis (Acute) Headache (Acute) Subjective: Feeling better, but still with a left sided headache (3-06/21) Vitals/I&O's: Vital Signs Temp Pulse Resp BP Pulse Ox 36.8 C 57 L 16 151/64 H 96 07/03/17 07:54 07/03/17 09:36 07/03/17 07:54 07/03/17 09:36 07/03/17 07:54 Oxygen Delivery Method Room Air Weight: 87.5 kg Body Mass Index (BMI) 37.6 Intake and Output for Last 24 Hours 07/01/17 07/02/17 07/03/17 23:59 23:59 23:59 Intake Total 3800 / 3800 1486 / 1486 1000 / 1000 Output Total 0 / 0 Balance 3800 / 3800 1486 / 1486 1000 / 1000 General: Alert, Cooperative, No apparent distress HEENT: Atraumatic, Normocephalic Neck: - - minimal left trapezius muscle tenderness. Skin: No rashes, No breakdown Musculoskeletal: No Tenderness to Palpation of Joints or Extremities, No Muscle Wasting Psych/Mental Status: Normal Affect, Appropriate Laboratory Results 07/03/17 05:28: Sodium 144, Potassium 3.9, Chloride 109 H, Carbon Dioxide 27.0, Anion Gap 8, BUN 23 H, Creatinine 1.13 H, Estim Creat Clear Calc 38.03, Est GFR (MDRD) Af Amer 63, Est GFR (MDRD) Non-Af 52 L, BUN/Creatinine Ratio 20.4 H, Glucose 150 H, Calcium 8.8 Current Medications Acetaminophen (Tylenol) 1,000 mg PO Q8 PRN PRN Reason: .HEADACHE/PAIN Last Admin: 07/03/17 06:21 Dose: 1,000 mg Allopurinol (Zyloprim) 300 mg PO PRN PRN PRN Reason: GOUT Amitriptyline HCl (Elavil) 50 mg PO QHS [facility] Last Admin: 07/02/17 23:15 Dose: 50 mg Aspirin (Aspirin, Baby) 81 mg PO DAILYCM [facility] Last Admin: 07/03/17 07:56 Dose: 81 mg Cyclobenzaprine HCl (Flexeril) 5 mg PO TID [facility] Last Admin: 07/03/17 06:11 Dose: 5 mg Enoxaparin Sodium (Lovenox) 40 mg SC DAILY@1000 [facility] Last Admin: 07/03/17 09:35 Dose: 40 mg Methylprednisolone 1,000 mg/ (Sodium Chloride) 116 mls @ 100 mls/hr IV DAILY [facility] Last Admin: 07/02/17 09:57 Dose: 100 mls/hr Valproic Acid 1,000 mg/ (Dextrose) 60 mls @ 50 mls/hr IV DAILY [facility] Last Admin: 07/03/17 09:53 Dose: 50 mls/hr Magnesium Hydroxide (Milk Of Magnesia) 30 ml PO DAILY PRN PRN PRN Reason: Constipation Metoprolol Succinate (Toprol Xl (Beta Nola)) 100 mg PO DAILY [facility] Last Admin: 07/03/17 09:36 Dose: 100 mg Sodium Chloride () 5 - 30 ml IV UD PRN PRN Reason: SALINE FLUSH Last Admin: 07/03/17 06:13 Dose: 10 ml Sumatriptan Succinate (Imitrex) 6 mg SC X1 ONE Stop: 07/03/17 10:14 Medical Necessity - Tobacco Use Smoking Status: Never smoker Tobacco Use: Non-smoker Assessment/Plan Active and Suspected Problems Viral encephalitis (Acute) Headache (Acute) 1. Viral encephalitis * Acyclovir being discontinued given acute kidney injury * Studies for enterovirus, HSV and VZV are pending. * Patient thus far tolerated the spinal tap well. We will follow the patient in regards to any kind of post spinal headaches. Does have a headache but is actually worse when she lays down rather than sitting up. * Will consult infectious disease for further input regards that they feel that this is encephalitis. * Follow-up studies of enterovirus, HSV and VZV. * Per Dr. Tipton, no encephalitis. 2. Acute kidney injury * Is likely due to acyclovir and IV contrast * Nephrology on consultation * Improved today. * dc IVF 3. Headache * Migraine? Spinal headache now? * neuro on consult. started on Elavil and Depakote * try sumatriptan * follow up with neurology * MRI in v outpt. 3. Hypertension: * Stable continue with her home meds * DC triamterene/hydrochlorothiazide acute kidney injury. 4. DVT prophylaxis with low molecular weight heparin. 5. Disposition: pending headache and neuro input. DW patient's . Code Visit Inpatient E&M: [id number] Subs Hosp L2
[2017-07-03] MEDS: SUMAtriptan 6 MG/0.5 ML Vial SC (11:24)
[2017-07-03 11:29] LABS: Eosinophil Ct. Urine No Eosinophils Seen % (.)
--- NOTE | 2017-07-03 11:35 | NURSING ---
Pt states that she is feeling funny after recieving imitrex shot. Dr. Keith notified and vital signs obtained. EKG order and troponin series ordered.
--- NOTE | 2017-07-03 11:39 | EKG12_ITS ---
Test Reason : CP Blood Pressure : / mmHG Vent. Rate : 046 BPM Atrial Rate : 046 BPM P-R Int : 162 ms QRS Dur : 088 ms QT Int : 466 ms P-R-T Axes : 035 -10 007 degrees QTc Int : 407 ms Marked sinus bradycardia Voltage criteria for left ventricular hypertrophy Abnormal ECG No previous ECGs available Confirmed by MIK CONTRERAS, YUNI ([id number]), video effects editor RONAN MANSFIELD ([id number]) on 07/15/2017 3:56:34 PM Referred By: BENTLEY Confirmed By:YUNI HOUSER MD
--- NOTE | 2017-07-03 20:32 | NURSING ---
Order recieved from Dr. Cash for Ultram prn, due to pts increased headache and only has tylenol ordered, which is not due. Upon entering order, alert noted of med interaction with elavil and flexaril. Spoke with Caden the pharmacist, he will resolve and states not concerned.
[2017-07-03] MEDS: traMADol 50 MG Tablet PO (20:39)
[2017-07-03] MEDS: Amitriptyline 25 MG Tablet 50 MG PO (22:45)
[2017-07-04 02:27] VITALS: BP 144/72; PULSE 55; RESP 16; TEMP 35.9; O2SAT 94
[2017-07-04] MEDS: Acetaminophen 500 MG Tablet 1000 MG PO ×2 (05:45→22:41)
[2017-07-04 06:10] LABS: Anion Gap 7 (5-15); BUN 21 mg/dL (7-18); BUN/Creat Ratio 24.4 RATIO (10-20); Calcium,Total 8.9 mg/dL (8.5-10.1); Chloride 107 mmol/L (98-107); Creatinine, Serum 0.86 mg/dL (0.55-1.02); EST Glomerular Filtration Rate 71 mL/min (>60); Est Glom Filt Rate - Afr Amer 86 mL/min (>60); Estimated Creatinine Clearance 49.97 ml/min; Glucose 154 mg/dL (74-106); Sodium Level 144 mmol/L (136-145)
--- NOTE | 2017-07-04 07:26 | MRI_ITS ---
STUDY: MRI BRAIN WITH AND WITHOUT CONTRAST REASON FOR EXAM: Female, 61 years old. Viral encephalitis. Severe headache. Stiff neck and fever x2 weeks following trip to [place]. TECHNIQUE: Standardized multiplanar fat and water weighted pulse sequences were obtained. 9 ml of Gadavist contrast material was administered intravenously for the contrast portion of the examination. COMPARISON: None. FINDINGS: No restricted diffusion to suspect acute or subacute ischemic infarct. Normal size of the ventricles and extra-axial spaces for the patient's age. Normal white matter tracts of the supratentorial brain. Normal bilateral basal ganglia. Normal thalami. There is no extra-axial fluid accumulation. Normal flow voids within the major intracranial circulation suggesting patency by spin echo criteria. Normal venous enhancement. There is no enhancing intra-axial or extra-axial abnormality. Normal sella turcica, pituitary gland, infundibular stalk, optic chiasm and hypothalamus. Normal tectal plate and pineal gland. Normal midbrain, shelia and medulla. Normal cerebellum. Normal basal cisterns. Normal bilateral temporal bones. Normal bilateral internal auditory canals. No demonstrated orbital abnormality, within the constraints of a routine brain study. Normal visualized paranasal sinuses. Normal calvarium and skull base. Normal visualized soft tissue structures. Normal visualized upper cervical spine. MRI/Brain W/WO Contrast IMPRESSION: Normal unenhanced and enhanced MRI of the brain. Electronically Signed: Alvaro Torres MD at 15:39 EDT , Service support ,
--- NOTE | 2017-07-04 07:29 | NURSING ---
Agreed with EILEEN Clancycorrespondence dictator.
[2017-07-04 09:09] VITALS: BP 144/78; PULSE 65; RESP 16; TEMP 36.6; O2SAT 96
[2017-07-04 09:11] VITALS: PULSE 64
[2017-07-04] MEDS: Enoxaparin 40 MG/0.4 ML Syringe SC (09:11)
[2017-07-04] MEDS: Metoprolol(XL)Succ 100 MG Tablet PO (09:11)
[2017-07-04] MEDS: Aspirin 81 MG TAB.CHEW PO (09:11)
[2017-07-04] MEDS: Triamterene 37.5MG/Hctz 25MG Capsule 1 CAP PO (09:14)
--- NOTE | 2017-07-04 09:31 | PN_ITS ---
Patient Problems: Active and Suspected Problems Viral encephalitis (Acute) Headache (Acute) Subjective: Patient was seen and examined. Still has headache that is in the occiput going down to the legs. Denies any fever or chills. No nausea or vomiting. MRI of the brain was seen to be done at the time of being examined. Vitals/I&O's: Vital Signs Temp Pulse Resp BP Pulse Ox 97.8 F 64 16 144/78 H 96 07/04/17 09:09 07/04/17 09:11 07/04/17 09:09 07/04/17 09:09 07/04/17 09:09 Oxygen Delivery Method Room Air Weight: 87.5 kg Body Mass Index (BMI) 37.6 Intake and Output for Last 24 Hours 07/02/17 07/03/17 07/04/17 23:59 23:59 23:59 Intake Total 1486 / 1486 1699 / 1699 550 / 550 Output Total 0 / 0 0 / 0 Balance 1486 / 1486 1699 / 1699 550 / 550 General: Alert, Oriented x3, Cooperative, No apparent distress HEENT: Atraumatic, PERRLA, EOMI, Normocephalic Oral: Moist Mucosa Neck: Supple Lungs: Clear to auscultation, Normal air movement Cardiovascular: Regular rate, Regular Rhythm, Normal S1, Normal S2, No murmurs Abdomen: Bowel Sounds Present, Soft, Non Tender, Non-Distended, No Hepato- splenomegaly Extremities: No edema Skin: No rashes, No breakdown Musculoskeletal: Tenderness - Tenderness over the occiput, posterior neck, posterior shoulders with tenseness Lymphatic: No Cervical, Supraclavicular, or Inguinal Adenopathy Neurological: Cranial nerves II-XII grossly intact, Neuro grossly intact Psych/Mental Status: Normal Affect, Appropriate Laboratory Results 07/01/17 10:50: Eos Smear Total Cells No Eosinophils Seen 07/03/17 12:35: Troponin I < 0.02 07/03/17 14:45: Troponin I < 0.02 07/03/17 17:35: Troponin I 0.03 07/04/17 05:30: Sodium 144, Potassium 4.0, Chloride 107, Carbon Dioxide 30.0, Anion Gap 7, BUN 21 H, Creatinine 0.86, Estim Creat Clear Calc 49.97, Est GFR ( MDRD) Af Amer 86, Est GFR (MDRD) Non-Af 71, BUN/Creatinine Ratio 24.4 H, Glucose 154 H, Calcium 8.9 Current Medications Acetaminophen (Tylenol) 1,000 mg PO Q8 PRN PRN Reason: .HEADACHE/PAIN Last Admin: 07/04/17 05:45 Dose: 1,000 mg Allopurinol (Zyloprim) 300 mg PO PRN PRN PRN Reason: GOUT Amitriptyline HCl (Elavil) 50 mg PO QHS [facility] Last Admin: 07/03/17 22:45 Dose: 50 mg Aspirin (Aspirin, Baby) 81 mg PO DAILYCM [facility] Last Admin: 07/04/17 09:11 Dose: 81 mg Cyclobenzaprine HCl (Flexeril) 5 mg PO TID [facility] Last Admin: 07/04/17 05:41 Dose: 5 mg Enoxaparin Sodium (Lovenox) 40 mg SC DAILY@1000 [facility] Last Admin: 07/04/17 09:11 Dose: 40 mg Methylprednisolone 1,000 mg/ (Sodium Chloride) 116 mls @ 100 mls/hr IV DAILY [facility] Last Admin: 07/03/17 11:51 Dose: 100 mls/hr Valproic Acid 1,000 mg/ (Dextrose) 60 mls @ 50 mls/hr IV DAILY [facility] Last Admin: 07/04/17 09:15 Dose: 50 mls/hr Magnesium Hydroxide (Milk Of Magnesia) 30 ml PO DAILY PRN PRN PRN Reason: Constipation Metoprolol Succinate (Toprol Xl (Beta Nola)) 100 mg PO DAILY [facility] Last Admin: 07/04/17 09:11 Dose: 100 mg Sodium Chloride () 5 - 30 ml IV UD PRN PRN Reason: SALINE FLUSH Last Admin: 07/03/17 20:10 Dose: 10 ml Tramadol HCl (Ultram) 50 mg PO Q6H PRN PRN PRN Reason: MODERATE PAIN (4-5/10) Last Admin: 07/03/17 20:39 Dose: 50 mg Triamterene/HCTZ (Dyazide (G)) 1 cap PO DAILY [facility] Last Admin: 07/04/17 09:14 Dose: 1 cap Medical Necessity - Tobacco Use Smoking Status: Never smoker Tobacco Use: Non-smoker Assessment/Plan Active and Suspected Problems Viral encephalitis (Acute) Headache (Acute) 61-year-old with history of hypertension who comes with complaints of headache, neck pain and fever and is being managed as viral encephalitis. 1. Headache, concerning for acute migraine, viral encephalitis ruled out with negative CSF cultures, neurology consulted, MRI of the brain is pending, since apparently reacted to Imitrex, continue on Elavil, cyclobenzaprine, Solu-Medrol , valproic acid, will follow up on MRI later. 2. Acute kidney injury secondary to dehydration, resolved, will continue to encourage oral hydration according to thirst. 3. Hypertension, controlled, continue on metoprolol XL 4. DVT prophylaxis - Lovenox SC 5. Disposition - Possible DC home if improved and all work-up is negative. Code Visit Inpatient E&M: 55747 Subs Hosp L2
--- NOTE | 2017-07-04 10:08 | PCM.CONS.GEN ---
Reason for Consult Date of Consultation: 07/04/17 Reason for Consultation: headache History of Present Illness: The patient is a 61 year old right handed white female presented 6 d ago with headache, which had began as neck pain about 8 days prior to presentation. reports stress at work may have been a trigger. works at a computer. no other triggers, initially treated for sinus infection with pred and cefuroxime to no avail. extensive workup including lp was negative. usually no headaches, never takes nsaids. history of snoring, no sleep study. believes headaches are improved on vpa and steroids, initially headache 12/21, now 06/21. didnt tolerate imitrex which was administered around noon yesterday. per admit h&P:The patient is a 61 year old F who is in her normal state of health up until about a week ago. One week ago patient started developing is diffuse headache as well as stiff neck and has intermittently had low-grade fevers up to 100.7 Fahrenheit. Patient which is not getting better and presented to the emergency room. Patient tried to get a lumbar puncture at bedside but were unsuccessful and the patient underwent to fluoroscopy and underwent a lumbar puncture. Results of the lumbar puncture showed white blood cells and protein count of 54. Glucose of 71. Patient is still having symptoms and discomfort in so patient is being admitted for treatment of viral encephalitis and pain control. Patient states that prior to this she denied any recent illness but did come back from [place] but did not do any hiking and did not contract any illnesses while she was there. Past Medical History Past Medical History (Chronic Problems): Chronic Problems HTN (hypertension) (Chronic) Allergies amoxicillin [From Augmentin] Allergy (Verified 06/29/17 06:59) Upset Stomach clavulanic acid [From Augmentin] Allergy (Verified 06/29/17 06:59) Upset Stomach sumatriptan [From Imitrex] Allergy (Verified 07/03/17 19:53) Chest tightness Home Medications: Ambulatory Orders Medication Instructions Recorded Allopurinol [Allopurinol] 1 tab PO PRN PRN 06/29/17 Aspirin 81 mg PO DAILY 06/29/17 Metoprolol(XL)Succ [Toprol Xl 100 tab PO DAILY 06/29/17 (Beta Nola)] Triamterene 37.5MG/Hctz 25MG 1 tab PO DAILY 04/18/18 [Dyazide (G)] Surgical History: total knee arthroplasty Lives: Spouse/ Significant Other Smoking Status: Never smoker Tobacco Use: Non-smoker Alcohol: Rare Drugs: None - *Family History Maternal History Items: - - No neurologic disorders. no family history of headaches Review of Systems Constitutional: Denies: Chills, Fever, Weight Change HEENT: Denies: Head Aches, Sinus Congestion, Sinus Drainage Cardiovascular: Denies: Chest Pain, Palpitations Respiratory: Denies: Cough, Shortness of breath at rest, Sputum production Gastrointestinal: Denies: Abdominal Pain, Nausea, Vomiting Genitourinary: Denies: Dysuria Musculoskeletal: Denies: Joint Pain, Joint Tenderness Skin: Denies: Rash, Wounds Neurological: Denies: Numbness, Tingling, Focal weakness Psychiatric: Denies: Anxiety, Depression, Homicidal Ideations, Suicidal Ideations Hematologic/ Lymphatic: Denies: Easy Bruising, Easy Bleeding Patient Problems: Active and Suspected Problems Viral encephalitis (Acute) Headache (Acute) - Physical Exam General: Alert, Oriented x3, Cooperative HEENT: Atraumatic, PERRLA, EOMI, Normocephalic Neck: Supple, No JVD, Negative Carotid Bruits Lungs: Clear to auscultation, Normal air movement Cardiovascular: Regular rate, No murmurs Abdomen: Bowel Sounds Present, Soft, Non Tender Extremities: No edema, Capillary Refill Less than 3 Seconds Skin: No rashes, No breakdown Musculoskeletal: No Tenderness to Palpation of Joints or Extremities Neurological: Cranial nerves II-XII grossly intact Psych/Mental Status: Normal Affect, Appropriate Vital Signs Temp Pulse Resp BP Pulse Ox 36.6 C 64 16 144/78 H 96 07/04/17 09:09 07/04/17 09:11 07/04/17 09:09 07/04/17 09:09 07/04/17 09:09 Oxygen Delivery Method Room Air Weight: 87.5 kg Body Mass Index (BMI) 37.6 Intake and Output for Last 24 Hours 07/02/17 07/03/17 07/04/17 23:59 23:59 23:59 Intake Total 1486 / 1486 1699 / 1699 550 / 550 Output Total 0 / 0 0 / 0 Balance 1486 / 1486 1699 / 1699 550 / 550 Laboratory Tests Past 24 Hrs 07/01/17 07/03/17 07/03/17 10:50 12:35 14:45 Eos Smear Total Cells No Eosinophils Seen Sodium Potassium Chloride Carbon Dioxide Anion Gap BUN Creatinine Estim Creat Clear Calc Est GFR (MDRD) Af Amer Est GFR (MDRD) Non-Af BUN/Creatinine Ratio Glucose Calcium Troponin I < 0.02 < 0.02 07/03/17 07/04/17 17:35 05:30 Eos Smear Total Cells Sodium 144 Potassium 4.0 Chloride 107 Carbon Dioxide 30.0 Anion Gap 7 BUN 21 H Creatinine 0.86 Estim Creat Clear Calc 49.97 Est GFR (MDRD) Af Amer 86 Est GFR (MDRD) Non-Af 71 BUN/Creatinine Ratio 24.4 H Glucose 154 H Calcium 8.9 Troponin I 0.03 Current Home Med List Medication Instructions Recorded Confirmed Type Allopurinol [Allopurinol] 1 tab PO PRN PRN 06/29/17 06/29/17 History Aspirin 81 mg PO DAILY 06/29/17 06/29/17 History Metoprolol(XL)Succ [Toprol Xl 100 tab PO DAILY 06/29/17 06/29/17 History (Beta Noal)] Triamterene 37.5MG/Hctz 25MG 1 tab PO DAILY 06/29/17 06/29/17 History [Dyazide (G)] Current Medications Acetaminophen 1,000 mg 06/29/17 17:45 07/04/17 05:45 Tylenol PO 1,000 mg Q8 PRN Administration .HEADACHE/PAIN Allopurinol 300 mg 06/29/17 17:45 Zyloprim PO PRN PRN GOUT Amitriptyline HCl 50 mg 07/01/17 22:00 07/03/17 22:45 Elavil PO 50 mg QHS FERNIE Administration Aspirin 81 mg 06/30/17 08:00 07/04/17 09:11 Aspirin, Baby PO 81 mg DAILYCM FERNIE Administration Cyclobenzaprine HCl 5 mg 06/30/17 22:00 07/04/17 05:41 Flexeril PO 5 mg TID FERNIE Administration Enoxaparin Sodium 40 mg 06/30/17 10:00 07/04/17 09:11 Lovenox SC 40 mg DAILY@1000 FERNIE Administration Methylprednisolone 1,000 mg/ 116 mls @ 100 mls/hr 07/01/17 14:30 07/03/17 11:51 Sodium Chloride IV 100 mls/hr DAILY FERNIE Administration Valproic Acid 1,000 mg/ 60 mls @ 50 mls/hr 07/01/17 14:00 07/04/17 09:15 Dextrose IV 50 mls/hr DAILY FERNIE Administration Magnesium Hydroxide 30 ml 06/29/17 17:45 Milk Of Magnesia PO DAILY PRN PRN Constipation Metoprolol Succinate 100 mg 06/30/17 10:00 07/04/17 09:11 Toprol Xl (Beta Nola) PO 100 mg DAILY FERNIE Administration Sodium Chloride 5 - 30 ml 06/29/17 18:18 07/03/17 20:10 IV 10 ml UD PRN Administration SALINE FLUSH Tramadol HCl 50 mg 07/03/17 20:27 07/03/17 20:39 Ultram PO 50 mg Q6H PRN PRN Administration MODERATE PAIN (4-5/10) Triamterene/HCTZ 1 cap 07/04/17 10:00 07/04/17 09:14 Dyazide (G) PO 1 cap DAILY FERNIE Administration Assessment/Plan Active and Suspected Problems Viral encephalitis (Acute) Headache (Acute) status migranosus, unusual with no history of migraine whatsovever continue vpa, solumedrol, elavil await mri dhe protocol if mri/v neg
--- NOTE | 2017-07-04 12:30 | NURSING ---
Patient off unit for MRI at this time.
--- NOTE | 2017-07-04 13:03 | NURSING ---
Pt. off the floor to MRI
[2017-07-04 16:55] VITALS: BP 154/79; PULSE 66; RESP 16; TEMP 36.5; O2SAT 94
[2017-07-04 22:00] VITALS: BP 153/78; PULSE 60; RESP 16; TEMP 36.6; O2SAT 94
[2017-07-04] MEDS: Magnesium Hydroxide 30 ML UDC PO (22:39)
[2017-07-04] MEDS: Amitriptyline 25 MG Tablet 50 MG PO (22:40)
[2017-07-05 03:07] LABS: HSV 1 By PCR Negative (Negative)
[2017-07-05 05:59] VITALS: BP 162/84; PULSE 64
[2017-07-05] MEDS: Metoprolol(XL)Succ 100 MG Tablet PO (05:59)
[2017-07-05] MEDS: Triamterene 37.5MG/Hctz 25MG Capsule 1 CAP PO (06:00)
[2017-07-05 06:06] VITALS: BP 162/84; PULSE 68; RESP 16; TEMP 36.6; O2SAT 93
[2017-07-05 06:57] LABS: Absolute Lymphocyte Count 0.53 X10^3/ul (0.83-4.51); Absolute Neutrophil Count 6.1 X10^3/uL (2.0-7.7); Basophil# 0.01 X10^3/uL; Basophil% 0.1 % (0-1); Hematocrit 37.7 % (37-47); Hemoglobin 12.9 g/dl (12.0-15.0); Lymphocyte # 0.53 X10^3/ul (4.0); Lymphocyte % 7.3 % (19-41); Mean Corp Hgb Conc 34.2 g/gl (32-36); Mean Corpuscular Hgb 32.5 pg (27.0-32.0); Mean Platelet Vol. 9.8 fl (6.2-12.0); Monocyte# 0.49 X10^3/uL; Monocyte% 6.7 % (0-10); Neutrophil # 6.12 X10^3/uL (2.7-7.7); Neutrophil % 84.1 % (47-70); Platelet Count 163 K/mm3 (150-450); RBC Distribution Width CV 14.1 % (11.6-14.6); RBC Distribution Width SD 47.3 fl (35.1-43.9); Red Blood Count 3.97 M/mm3 (4.2-5.4); White Blood Count 7.3 K/mm3 (4.4-11.0)
[2017-07-05 06:59] LABS: Differential Indicated SCAN CRITERIA MET; POSITIVE COUNT NO; POSITIVE DIFFERENTIAL YES; POSITIVE MORPHOLOGY NO
[2017-07-05 07:06] LABS: Anion Gap 7 (5-15); BUN 22 mg/dL (7-18); BUN/Creat Ratio 26.5 RATIO (10-20); Calcium,Total 8.9 mg/dL (8.5-10.1); Chloride 100 mmol/L (98-107); Creatinine, Serum 0.83 mg/dL (0.55-1.02); EST Glomerular Filtration Rate 74 mL/min (>60); Est Glom Filt Rate - Afr Amer 90 mL/min (>60); Estimated Creatinine Clearance 51.77 ml/min; Glucose 137 mg/dL (74-106); Potassium 3.2 mmol/L (3.5-5.1); Sodium Level 141 mmol/L (136-145)
[2017-07-05 07:47] VITALS: BP 180/86; PULSE 60; RESP 18; TEMP 36.5; O2SAT 96
[2017-07-05] MEDS: Aspirin 81 MG TAB.CHEW PO (07:51)
--- NOTE | 2017-07-05 08:14 | PCM.DC ---
- Discharge Diagnoses Current Active Problems: Current Active and Chronic Problems Viral encephalitis (Acute) HTN (hypertension) (Chronic) Headache (Acute) Reason(s) for Visit for Discharge Instructions: Headache, neck pain, fever You will use the following diet at home:: Cardiac Your food should be the consistency of: Regular Your liquids should be the consistency of: Regular/Thin Discharge Activity: Return to Normal Activity Additional Instructions: Your BP was slightly elevated in the hospital. A BP medication has been prescribed. Keep a log of your BP and follow-up with your PCP in 1 week to re-evaluate this and determine if you still need the new BP medication. You are going to get a prednisone taper because you have been on IV steroids for some days. You are going home also with a few medications that you had been taking for headaches. You need to see a neurologist to re-evaluate continuous need for this. Allergies/Adverse Reactions: Allergies amoxicillin [From Augmentin] Allergy (Verified 06/29/17 06:59) Upset Stomach clavulanic acid [From Augmentin] Allergy (Verified 06/29/17 06:59) Upset Stomach sumatriptan [From Imitrex] Allergy (Verified 07/03/17 19:53) Chest tightness Medications to take at Discharge Allopurinol 1 tab PO PRN PRN 06/29/17 Aspirin 81 mg PO DAILY 06/29/17 Metoprolol(XL)Succ [Toprol Xl (Beta Nola)] 100 tab PO DAILY 06/29/17 Triamterene 37.5MG/Hctz 25MG [Dyazide (G)] 1 tab PO DAILY 06/29/17 Amitriptyline HCl [Elavil] 50 mg PO QHS #14 tab 07/05/17 Amlodipine [Norvasc] 5 mg PO DAILY #30 tab 07/05/17 Cyclobenzaprine [Flexeril] 5 mg PO TID #21 tab 07/05/17 Prednisone 10 mg PO UD #30 tab 07/05/17 The following prescriptions were given: Amitriptyline HCl [Elavil] 50 mg PO QHS #14 tab Amlodipine [Norvasc] 5 mg PO DAILY #30 tab Prednisone 10 mg PO UD #30 tab Cyclobenzaprine [Flexeril] 5 mg PO TID #21 tab Primary Care Physician: Ronen Ferraro [Primary Care Provider] - Please follow up with your Primary Care Physician in: within 2 weeks; preferably in 1 week to re-evaluate BP Please Follow Up With: Marquez Bear MD When: within 2 weeks Proposed Discharge Date: 07/05/17
[2017-07-05] MEDS: amLODIPine 5 MG Tablet PO (08:27)
[2017-07-05 08:33] VITALS: BP 147/82
--- NOTE | 2017-07-05 08:44 | DS.PCM_ITS ---
Discharge Date and Diagnosis Date of Admission: 06/29/17 Date of Discharge: 07/05/17 - Primary Discharge Diagnosis Active and Suspected Problems Viral encephalitis (Acute), ruled out Acute migrainous headache Muscle spasms - Secondary Discharge Diagnosis Chronic Problems HTN (hypertension) (Chronic) Hospital Course and Treatment Imaging Results: Clinical Impression(s) from Imaging Studies Head CTA 06/29/17 07:35 IMPRESSION: Normal chilkat of Estevez without a demonstrated aneurysm or hemodynamically significant stenosis. Electronically Signed: Jose Gatica MD at 9:52 EDT Tel [phone], Service support , Neck CTA 06/29/17 07:35 IMPRESSION: Mild plaque formation at the origin of the right internal carotid artery. Electronically Signed: Jose Gatica MD at 9:46 EDT Tel [phone], Service support , Lumbar Puncture Fluoroscopy 06/29/17 14:35 IMPRESSION: Successful fluoroscopic-guided lumbar puncture. Electronically Signed: Jose Gatica MD at 15:21 EDT Tel [phone], Service support , Brain MRI 07/04/17 07:26 IMPRESSION: Normal unenhanced and enhanced MRI of the brain. Electronically Signed: Alvaro Torres MD at 15:39 EDT , Service support , Neurology Operations: None Procedures: None Summary of Care Provided: 61-year-old with history of hypertension who comes with complaints of headache, neck pain and fever. 1. Headache, concerning for acute migraine, viral encephalitis ruled out with negative CSF cultures, neurology consulted, MRI of the brain negative. Patient had a severe reaction on the floor to Imitrex for treatment for acute migraine, had chest pain which severe bradycardia that resolved with watchful waiting, troponins were trended and were negative, discharged on Elavil, cyclobenzaprine , steroid taper and to follow-up with neurology 2. Acute kidney injury secondary to dehydration, resolved 3. Hypertension, was slightly uncontrolled at discharge, amlodipine was added to the medication and continued on metoprolol XL. Nose to check blood pressure every day and follow-up with her primary care doctor within 2 weeks. Discharge Diet: Low fat/ Low Cholesterol, 2000 mg Sodium Diet Discharge Activity: Return to Normal Activity Home Medications: Medications to take at Discharge Allopurinol 1 tab PO PRN PRN 06/29/17 Aspirin 81 mg PO DAILY 06/29/17 Metoprolol(XL)Succ [Toprol Xl (Beta Nola)] 100 tab PO DAILY 06/29/17 Triamterene 37.5MG/Hctz 25MG [Dyazide (G)] 1 tab PO DAILY 06/29/17 Amitriptyline HCl [Elavil] 50 mg PO QHS #14 tab 07/05/17 Amlodipine [Norvasc] 5 mg PO DAILY #30 tab 07/05/17 Cyclobenzaprine [Flexeril] 5 mg PO TID #21 tab 07/05/17 Prednisone 10 mg PO UD #30 tab 07/05/17 Following Prescrptions Were Given to Patient: Amitriptyline HCl [Elavil] 50 mg PO QHS #14 tab Amlodipine [Norvasc] 5 mg PO DAILY #30 tab Prednisone 10 mg PO UD #30 tab Cyclobenzaprine [Flexeril] 5 mg PO TID #21 tab Primary Care Physician: Ronen Ferraro [Primary Care Provider] - Please follow up with your Primary Care Physician in: within 2 weeks; preferably in 1 week to re-evaluate BP Please Follow Up With: Marquez Bear MD When: within 2 weeks Disposition: Home Minutes spent on discharge:: 35 Patient Condition:: Stable Medical Necessity - Tobacco Use Smoking Status: Never smoker Tobacco Use: Non-smoker Meaningful Use Info Meaningful Use Diagnoses (Choose all that apply): None applicable Code Visit Inpatient E&M: 96833 Disch Hosp
[2017-07-05 10:47] LABS: Enterovirus By PCR Negative (Negative); HSV 2 By PCR Negative (Negative)
== END 2017-07-05 10:09 | disposition home or self-care (01) | DRG 103 ==
LOC: ED 09:14 → MS2 16:55
PROVIDERS: Emergency Provider Emergency Medicine; Family Provider Internal Medicine Infectious Disease; PCP Internal Medicine Infectious Disease; Visit Provider Internal Medicine
DX: G43.901 Migraine, unspecified, not intractable, with status migrainosus (principal); N17.9 Acute kidney failure, unspecified; I10 Essential (primary) hypertension; Z79.82 Long term (current) use of aspirin; Z79.899 Other long term (current) drug therapy; E86.0 Dehydration; R07.9 Chest pain, unspecified; R00.1 Bradycardia, unspecified; T39.8X5A Adverse effect of other nonopioid analgesics and antipyretics, not elsewhere classified, initial encounter; Y92.230 Patient room in hospital as the place of occurrence of the external cause
CPT/HCPCS: 36415; 62270; 70496; 70498; 70553; 77003; 80048; 81001; 82570; 82945; 84157; 84300; 84484; 85025; 85027; 85610; 85730; 87070; 87205; 87449; 87498; 87529; 87798; 88108; 88313; 89050; 89051; 93005; 99284; A9585; J7030; J7040; Q9967; A4216; J2930; J3030

== ENCOUNTER → 2017-07-20 12:59 | Outpatient (CLI) | payer OTHER, SELFPAY ==
[2017-07-20 14:27] LABS: ALB/GLOB Ratio 1.1 RATIO (0.9-2.4); AST(SGOT) 18 U/L (15-37); Alanine Aminotransfer ALT/SGPT 38 U/L (13-56); Albumin, Serum 3.7 g/dL (3.2-5.0); Alkaline Phosphatase 88 U/L (45-117); Anion Gap 8 (5-15); BUN 12 mg/dL (7-18); BUN/Creat Ratio 15.4 RATIO (10-20); Calcium,Total 9.5 mg/dL (8.5-10.1); Chloride 104 mmol/L (98-107); Creatinine, Serum 0.78 mg/dL (0.55-1.02); EST Glomerular Filtration Rate 80 mL/min (>60); Est Glom Filt Rate - Afr Amer 97 mL/min (>60); Globulin 3.4 g/dL (2.2-4.2); Glucose 108 mg/dL (74-106); Potassium 3.5 mmol/L (3.5-5.1); Protein, Total 7.1 g/dL (6.4-8.2); Sodium Level 140 mmol/L (136-145)
[2017-07-22 11:57] LABS: CMV Acute Antibody IgM < 30.0 AU/mL (0.0-29.9); CMV Antibody IgG < 0.60 U/mL (0.00-0.59); EBV Acute VCA IgM < 36.0 U/mL (0.0-35.9); EBV Early Antigen IgG 14.4 U/mL (0.0-8.9); EBV Nuclear Antigen IgG 73.9 U/mL (0.0-17.9); EBV-VCA IgG 95.6 U/mL (0.0-17.9)
== END ==
PROVIDERS: Family Provider Internal Medicine Infectious Disease; PCP Internal Medicine Infectious Disease; Visit Provider Family Medicine
DX: I10 Essential (primary) hypertension (principal); B34.9 Viral infection, unspecified
CPT/HCPCS: 36415; 80053; 86644; 86645; 86663; 86664; 86665

== ENCOUNTER → 2018-07-20 08:14 | Outpatient (CLI) | payer OTHER, SELFPAY ==
[2017-06-29 18:07] VITALS: BMI 37.6
[2018-07-20 10:20] LABS: Microalbumin:Creatinine Ratio 26.1 mg/g CRE (<30 mg/g CRE)
[2018-07-20 10:35] LABS: ALB/GLOB Ratio 1.2 RATIO (0.9-2.4); AST(SGOT) 30 U/L (15-37); Alanine Aminotransfer ALT/SGPT 45 U/L (13-56); Albumin, Serum 3.8 g/dL (3.2-5.0); Alkaline Phosphatase 90 U/L (45-117); Anion Gap 8 (5-15); BUN 16 mg/dL (7-18); BUN/Creat Ratio 20.1 RATIO (10-20); Calcium,Total 9.4 mg/dL (8.5-10.1); Chloride 104 mmol/L (98-107); EST Glomerular Filtration Rate 78 mL/min (>60); Est Glom Filt Rate - Afr Amer 94 mL/min (>60); Globulin 3.1 g/dL (2.2-4.2); Glucose 111 mg/dL (74-106); Magnesium 2.1 mg/dL (1.6-2.6); Potassium 3.6 mmol/L (3.5-5.1); Protein, Total 6.9 g/dL (6.4-8.2); Sodium Level 142 mmol/L (136-145); Thyroid Stim Hormone (TSH) 3.08 uIU/mL (0.358-3.74)
== END ==
PROVIDERS: Family Provider Family Medicine; PCP Family Medicine; Referring Provider Family Medicine; Visit Provider Family Medicine
DX: M10.9 Gout, unspecified (principal); I10 Essential (primary) hypertension
CPT/HCPCS: 36415; 80053; 82043; 82570; 83735; 84443; 84550

== ENCOUNTER → 2020-07-17 | Outpatient (CLI) | payer SELFPAY ==
[2017-06-29 18:07] VITALS: BMI 37.6
== END | disposition home or self-care (01) ==
PROVIDERS: PCP Family Medicine; Referring Provider Family Medicine; Visit Provider Family Medicine
DX: U07.1 COVID-19 (principal)
CPT/HCPCS: 87635; U0002

== ENCOUNTER → 2022-01-22 | Outpatient (CLI) | payer OTHER, SELFPAY ==
[2022-01-22 12:25] LABS: ALB/GLOB Ratio 1.1 RATIO (0.9-2.4); AST(SGOT) 30 U/L (15-37); Alanine Aminotransfer ALT/SGPT 39 U/L (13-56); Alkaline Phosphatase 86 U/L (45-117); Anion Gap 9 (5-15); BUN 17 mg/dL (7-18); BUN/Creat Ratio 21.6 RATIO (10-20); Calcium,Total 10.1 mg/dL (8.5-10.1); Chloride 101 mmol/L (98-107); Cholesterol 210 mg/dL (200); Creatinine, Serum 0.79 mg/dL (0.55-1.02); EST Glomerular Filtration Rate 78 mL/min (>60); Est Glom Filt Rate - Afr Amer 94 mL/min (>60); Globulin 3.6 g/dL (2.2-4.2); Glucose 122 mg/dL (74-106); High Density Lipoprotein 65 mg/dL; Potassium 3.9 mmol/L (3.5-5.1); Protein, Total 7.6 g/dL (6.4-8.2); Sodium Level 137 mmol/L (136-145); Triglycerides 119 mg/dL; Very Low Density Lipoprotein 24 mg/dL (5-40)
[2022-01-22 13:16] LABS: Microalbumin,Random Urine < 5.0 mg/L (NO RANGE EST.)
== END | disposition home or self-care (01) ==
LOC: MFPLAB 10:23
PROVIDERS: PCP Family Medicine; Referring Provider Family Medicine; Visit Provider Family Medicine
DX: Z00.00 Encounter for general adult medical examination without abnormal findings (principal)
CPT/HCPCS: 36415; 80053; 80061; 82043; 82570

== ENCOUNTER → 2023-01-25 | Outpatient (CLI) | payer OTHER, MEDICARE, SELFPAY ==
[2023-01-25 13:20] LABS: ALB/GLOB Ratio 1.1 RATIO (0.9-2.4); AST(SGOT) 31 U/L (15-37); Alanine Aminotransfer ALT/SGPT 37 U/L (13-56); Alkaline Phosphatase 91 U/L (45-117); Anion Gap 5 (5-15); BUN 19 mg/dL (7-18); BUN/Creat Ratio 22.9 RATIO (10-20); Calcium,Total 9.7 mg/dL (8.5-10.1); Chloride 99 mmol/L (98-107); Cholesterol 209 mg/dL (200); Creatinine, Serum 0.83 mg/dL (0.55-1.02); EST Glomerular Filtration Rate 73 mL/min (>60); Est Glom Filt Rate - Afr Amer 89 mL/min (>60); Globulin 3.7 g/dL (2.2-4.2); Glucose 128 mg/dL (74-106); High Density Lipoprotein 58 mg/dL; Potassium 3.5 mmol/L (3.5-5.1); Protein, Total 7.7 g/dL (6.4-8.2); Sodium Level 136 mmol/L (136-145); Triglycerides 206 mg/dL; Very Low Density Lipoprotein 41 mg/dL (5-40)
[2023-01-25 13:25] LABS: Microalbumin,Random Urine 9.8 mg/L (NO RANGE EST.); Microalbumin:Creatinine Ratio 12.3 mg/g CRE (<30 mg/g CRE)
[2023-01-26 09:51] LABS: Hemoglobin A1c 6.1 % (3.8-5.6)
== END | disposition home or self-care (01) ==
PROVIDERS: PCP Family Medicine; Visit Provider Family Medicine
DX: I10 Essential (primary) hypertension (principal); E66.01 Morbid (severe) obesity due to excess calories; Z68.41 Body mass index [BMI] 40.0-44.9, adult
CPT/HCPCS: 36415; 80053; 80061; 82043; 82570; 83036

== ENCOUNTER → 2025-02-25 | Outpatient (CLI) | payer MEDICARE, OTHER, SELFPAY ==
[2025-02-25 12:27] LABS: Hematocrit 41.3 % (37-47); Hemoglobin 14.1 g/dL (12.0-15.0); Immature Granulocytes Count 0.010 X10^3/uL (0.0-0.0); Mean Corp Hgb Conc 34.1 g/dL (32-36); Mean Corpuscular Volume 96.0 fL (81-99); Mean Platelet Vol. 10.2 fl (6.2-12.0); NRBC Flagged by Analyzer 0 % (0-5); Platelet Count 155 K/mm3 (150-450); RBC Distribution Width CV 14.6 % (11.6-14.6); RBC Distribution Width SD 51.4 fl (35.1-43.9); Red Blood Count 4.30 M/mm3 (4.2-5.4); White Blood Count 4.5 K/mm3 (4.4-11.0)
[2025-02-25 12:37] LABS: AST(SGOT) 26 U/L (<=31); Alanine Aminotransfer ALT/SGPT 18 U/L (<=34); Albumin, Serum 4.3 g/dL (3.4-4.8); Alkaline Phosphatase 87 U/L (35-104); Anion Gap 10 (5-15); BUN 22 mg/dL (4-19); BUN/Creat Ratio 30.9 RATIO (10-20); Calcium,Total 10.0 mg/dL (7.6-11.0); Carbon Dioxide 30.1 mmol/L (21.0-32.0); Chloride 101 mmol/L (98-108); Cholesterol 212 mg/dL (<=200); Globulin 2.9 g/dL (2.2-4.2); Glucose 120 mg/dL (70-99); Low Density Lipoprotein Calc. 119 mg/dL; Potassium 3.6 mmol/L (3.3-5.1); Triglycerides 130 mg/dL; Very Low Density Lipoprotein 26 mg/dL (5-40); cholesterol:hdl ratio screen 3.00
== END | disposition home or self-care (01) ==
LOC: MTLAB 10:55
PROVIDERS: PCP Family Medicine; Visit Provider Family Medicine
DX: E11.9 Type 2 diabetes mellitus without complications (principal)
CPT/HCPCS: 36415; 80053; 80061; 83036; 85025